=== PATIENT | male | born 1935 | race Caucasian/White ===

== ENCOUNTER 2020-03-17 08:27 | Inpatient (IN) | payer MEDICARE, OTHER ==
[~2020-03-17] VITALS: Ht 167.6 cm; Wt 77.7 kg
[2020-03-17] MEDS ORDERED: CLOPIDOGREL75 MG ORAL (08:42)
[2020-03-17] MEDS ORDERED: AVODART0.5 MG ORAL (08:42)
[2020-03-17] MEDS ORDERED: CRESTOR10 M2 ORAL (08:42)
[2020-03-17] MEDS ORDERED: METFORMIN HCL1000 M1 ORAL (08:42)
[2020-03-17] MEDS ORDERED: DEPAKOTE250 MG PO (08:42)
[2020-03-17] MEDS ORDERED: LEVOTHYROXINE75 MCG ORAL (08:42)
[2020-03-17] MEDS ORDERED: STARLIX60 MG ORAL (08:42)
[2020-03-17] MEDS ORDERED: FLOMAX0.4 MG ORAL (08:42)
[2020-03-17] MEDS ORDERED: SPIRONOLACTONE100 MG ORAL (08:42)
[2020-03-17] MEDS ORDERED: ABILIFY2 MG ORAL (08:42)
[2020-03-17] MEDS ORDERED: LEXAPRO20 MG ORAL (08:42)
[2020-03-17] MEDS ORDERED: MIRTAZAPINE15 M3 ORAL (08:42)
[2020-03-17] MEDS ORDERED: LISINOPRIL5 MG ORAL (08:42)
[2020-03-17] MEDS ORDERED: CARVEDILOL3.125 MG ORAL (08:42)
--- NOTE | 2020-03-17 08:51 | Emergency Room Report ---
History of Present Illness General Chief Complaint: Lower Extremity Injury Source: Patient, EMS Present Illness HPI Patient was sent from nursing facility with reports of right leg pain Patient himself has significant dementia cannot provide any history patient cannot provide input of why he was sent to the emergency room This does limit the history of present illness There was no reports of vomiting or diarrhea no reports of fevers there was question of a 'tick' being visualized on the patient's leg There was no reports of any obvious fall or trauma Patient is fairly comfortable upon arrival Palpation of the ankle and the knee does not reproduce any discomfort after this initial report I did speak to the patient's primary physician who reports the patient has had documented fever and cough raising question of covid19 Infection Allergies: Coded Allergies: ATORVASTATIN (Verified Allergy, Mild, 04/17/09) COVID-19 Screening Contact w/high risk pt: No Recent Travel to affected area: No Experienced COVID-19 symptoms?: No Patient History Limited by: medical condition Past Medical History: see triage record Reviewed Nursing Documentation: PMH: Agreed; PSxH: Agreed Nursing Documentation-PMH Hx Hypertension: Yes Hx Diabetes: Yes Review of Systems All Other Systems: limited - Other than the ones mentioned in the history of present illness all others are reviewed however they do stay limited due to the patient's mental status Physical Exam Vital Signs Date Time Temp Pulse Resp B/P (MAP) Pulse Ox O2 Delivery O2 Flow Rate FiO2 03/17/20 08:28 97.2 79 14 123/74 (90) 97 Room Air Sp02 EP Interpretation: reviewed, normal General Appearance: no apparent distress Head: normocephalic, atraumatic Eyes: bilateral eye PERRL, bilateral eye EOMI ENT: EOM grossly intact Neck: supple Respiratory: lungs clear, no respiratory distress, no retraction Cardiovascular #1: regular rate, rhythm Gastrointestinal: non tender, soft Musculoskeletal: other - Patient has some mild edema both lower extremities dependent in nature patient does not follow commands however passive movement of the extremities does not reproduce any discomfort Neurologic: responsive - To verbal stimuli following simple commands Skin: other - There is appearance of some edema in both lower extremities more on the right side patient has a venous stasis evident on the right lower extremity Lymphatic: no adenopathy Medical Decision Making Diagnostic Impression: Primary Impression: Weakness Additional Impression: Suspected COVID-19 virus infection ER Course given the history and exam initially x-ray imaging and ultrasound was obtained of the lower extremity with the new information patient also had covid 19 testing initiated Patient is negative for DVT At this time admitted for further inpatient care Labs Test 03/17/20 08:55 03/18/20 07:00 White Blood Count 4.9 K/UL (4.8-10.8) 5.6 K/UL (4.8-10.8) Red Blood Count 3.94 M/UL (4.70-6.10) 4.15 M/UL (4.70-6.10) Hemoglobin 10.8 G/DL (14.2-18.0) 11.6 G/DL (14.2-18.0) Hematocrit 32.1 % (42.0-52.0) 34.0 % (42.0-52.0) Mean Corpuscular Volume 82 FL (80-99) 82 FL (80-99) Mean Corpuscular Hemoglobin 27.5 PG (27.0-31.0) 27.9 PG (27.0-31.0) Mean Corpuscular Hemoglobin Concent 33.7 G/DL (32.0-36.0) 34.1 G/DL (32.0-36.0) Red Cell Distribution Width 12.9 % (11.6-14.8) 12.7 % (11.6-14.8) Platelet Count 270 K/UL (150-450) 317 K/UL (150-450) Mean Platelet Volume 5.6 FL (6.5-10.1) 5.7 FL (6.5-10.1) Neutrophils (%) (Auto) 75.7 % (45.0-75.0) 76.2 % (45.0-75.0) Lymphocytes (%) (Auto) 12.9 % (20.0-45.0) 12.8 % (20.0-45.0) Monocytes (%) (Auto) 10.0 % (1.0-10.0) 8.9 % (1.0-10.0) Eosinophils (%) (Auto) 0.8 % (0.0-3.0) 1.4 % (0.0-3.0) Basophils (%) (Auto) 0.6 % (0.0-2.0) 0.7 % (0.0-2.0) Sodium Level 138 MMOL/L (136-145) 141 MMOL/L (136-145) Potassium Level 4.3 MMOL/L (3.5-5.1) 3.8 MMOL/L (3.5-5.1) Chloride Level 105 MMOL/L (98-107) 106 MMOL/L (98-107) Carbon Dioxide Level 22 MMOL/L (21-32) 23 MMOL/L (21-32) Anion Gap 11 mmol/L (5-15) 12 mmol/L (5-15) Blood Urea Nitrogen 41 mg/dL (7-18) 23 mg/dL (7-18) Creatinine 1.0 MG/DL (0.55-1.30) 1.1 MG/DL (0.55-1.30) Estimat Glomerular Filtration Rate > 60 mL/min (>60) > 60 mL/min (>60) Glucose Level 100 MG/DL (74-106) 67 MG/DL (74-106) Calcium Level 8.3 MG/DL (8.5-10.1) 8.4 MG/DL (8.5-10.1) Troponin I 0.000 ng/mL (0.000-0.056) Pro-B-Type Natriuretic Peptide 396 pg/mL (0-125) Total Bilirubin 0.4 MG/DL (0.2-1.0) Aspartate Amino Transf (AST/SGOT) 39 U/L (15-37) Alanine Aminotransferase (ALT/SGPT) 59 U/L (12-78) Alkaline Phosphatase 44 U/L (46-116) Total Protein 7.3 G/DL (6.4-8.2) Albumin 2.8 G/DL (3.4-5.0) Globulin 4.5 g/dL Albumin/Globulin Ratio 0.6 (1.0-2.7) Rhythm Strip Diag. Results EP Interpretation: yes Rate: 77 Rhythm: NSR, no PVC's, no ectopy Chest X-Ray Diagnostic Results Chest X-Ray Diagnostic Results : Chest X-Ray Ordered: Yes # of Views/Limited/Complete: 1 View Indication: Shortness of Breath EP Interpretation: Yes Interpretation: no effusion, no pneumothorax, other - left midlobe atelectasis Impression: Other - left midlobe atelectasis Electronically Signed by: karina Rhodes DO Other X-Ray Diagnostic Results Other X-Ray Diagnostic Results : X-Ray ordered: right tib/fib # of Views/Limited Vs Complete: 3 View Indication: Pain EP Interpretation: Yes Interpretation: no dislocation, no soft tissue swelling, no fractures Impression: No acute disease Electronically Signed by: karina rhodes DO CT/MRI/US Diagnostic Results CT/MRI/US Diagnostic Results : Impression right lower extremity venous ultrasound negative for DVT Last Vital Signs Date Time Temp Pulse Resp B/P (MAP) Pulse Ox O2 Delivery O2 Flow Rate FiO2 03/17/20 08:28 97.2 79 14 123/74 (90) 97 Room Air Status: improved Disposition: ADMITTED INPATIENT Condition: Serious Karina Rhodes DO March 17, 2020 08:51
[2020-03-17 09:06] LABS: BASOPHILS % (AUTO) 0.6 % (0.0-2.0); EOSINOPHILS % (AUTO) 0.8 % (0.0-3.0); HEMATOCRIT 32.1 % (42.0-52.0); HEMOGLOBIN 10.8 G/DL (14.2-18.0); LYMPHOCYTES % (AUTO) 12.9 % (20.0-45.0); MEAN CORPUSCULAR VOLUME 82 FL (80-99); NEUTROPHILS % (AUTO) 75.7 % (45.0-75.0); PLATELET COUNT 270 K/UL (150-450); RED BLOOD COUNT 3.94 M/UL (4.70-6.10); RED CELL DISTRIBUTION WIDTH 12.9 % (11.6-14.8); WHITE BLOOD COUNT 4.9 K/UL (4.8-10.8)
[2020-03-17 09:37] LABS: ANION GAP 11 mmol/L (5-15); BLOOD UREA NITROGEN 41 mg/dL (7-18); CALCIUM 8.3 MG/DL (8.5-10.1); CARBON DIOXIDE 22 MMOL/L (21-32); CHLORIDE 105 MMOL/L (98-107); POTASSIUM 4.3 MMOL/L (3.5-5.1); SODIUM 138 MMOL/L (136-145)
--- NOTE | 2020-03-17 10:24 | Diagnostic Imaging Report ---
Indication: Chest pain Technique: One view of the chest Comparison: 01/31/2012 Findings: The heart is enlarged. There may be some hazy infiltrate in the left midlung periphery and consolidation of the left lung base. The right lung is clear. The pleural spaces are clear. Impression: Cardiomegaly Equivocal left midlung periphery and basilar infiltrate
[2020-03-17 11:00] VITALS: BP 120/80
--- NOTE | 2020-03-17 11:28 | Diagnostic Imaging Report ---
Indication: Reason For Exam: PAIN Technique: 2 views of the right tibia and fibula Comparison: none Findings: No acute fractures. No dislocations. The joint spaces are preserved. No radiopaque foreign body. Vascular calcifications are noted Impression: No acute process
--- NOTE | 2020-03-17 11:30 | Diagnostic Imaging Report ---
Indication: Right leg pain and redness Technique: Grayscale and duplex images of the right lower extremity veins Comparison: None Findings: On the right, grayscale and duplex images demonstrate no evidence of intraluminal thrombus. Normal phasic Doppler waveforms, demonstrating normal augmentation response and no evidence of valvular insufficiency. Greater saphenous vein(s) and tibial veins are patent. Normal compressibility. Impression: Negative for evidence of lower extremity deep venous thrombosis on the right
[2020-03-17 13:12] VITALS: BP 125/85
[2020-03-17] MEDS ORDERED: Azithromycin 500 MG in NS 275 ML IV ONE (13:30)
[2020-03-17] MEDS ORDERED: LORazepam Inj 2mg/ml 1ml ONE (16:02)
[2020-03-17] MEDS ORDERED: LORazepam Inj 2mg/ml 1ml IV ONE (16:15)
[2020-03-17 16:19] VITALS: BP 132/75
[2020-03-17 18:15] VITALS: BP 119/80
[2020-03-17 20:00] VITALS: BP 122/70
[2020-03-17] MEDS ORDERED: Acetaminophen 500mg (ES) tab ORAL PRN (20:00)
[2020-03-17] MEDS: Tamsulosin 0.4mg cap ORAL SCH (20:52)
--- NOTE | 2020-03-17 21:00 | Consultation ---
DATE OF CONSULTATION: 03/17/2020 PULMONARY CONSULTATION HISTORY OF PRESENT ILLNESS: This is an 84-year-old [facility] resident who was sent into the hospital with lower extremity discomfort. The patient has dementia and cannot provide any history. Most of the history obtained from the records. There was no history of fevers, nausea, vomiting, diarrhea. The patient appears to be comfortable on my evaluation. PAST MEDICAL HISTORY: Notable for dementia, [facility] resident. REVIEW OF SYSTEMS: Not obtainable. PAST SURGICAL HISTORY: Not known. PHYSICAL EXAMINATION: GENERAL: Reveals a elderly male. VITAL SIGNS: Blood pressure 120/60, heart rate is 84, respirations 18, afebrile. HEENT: Unremarkable. CHEST: Clear breath sounds. ABDOMEN: Soft. EXTREMITIES: There is no edema. LABORATORY DATA: Lab testing at this time is unremarkable except for hemoglobin 10.8, otherwise normal CBC and BMP. IMAGING STUDIES: X-ray of chest was obtained, which shows left lung infiltrate. IMPRESSION: 1. Possible pneumonia. 2. Lower extremity pain. 3. Dementia. DISCUSSION: Admitted to the hospital. We will need broad-spectrum antibiotics to cover for pneumonia. COVID-19 testing has been obtained. Agree with . We will follow carefully. Amador Cornejo M.D. DR: Nabeel JOB#: [id number] CC:
--- NOTE | 2020-03-17 22:00 | Consultation ---
DATE OF CONSULTATION: 03/17/2020 INFECTIOUS DISEASES CONSULTATION CONSULTING PHYSICIAN: Fredy Wheeler MD. PRIMARY ATTENDING PHYSICIAN: Karina Tripp MD. REASON FOR CONSULTATION: Fever, rule out COVID-19. HISTORY OF PRESENT ILLNESS: This is an 84-year-old white male who is a prison resident admitted because of fever. The patient has dementia and psych problem, is not a source of history. PAST MEDICAL HISTORY: Significant for diabetes mellitus, hypertension, hypothyroidism, dementia, BPH. ALLERGIES: Allergic to atorvastatin. MEDICATIONS: Got a dose of azithromycin. SOCIAL HISTORY: assisted resident. Single. No other history obtainable by the patient. The patient is confused, pulled out IV, naked, wandering in the room. PHYSICAL EXAMINATION: VITAL SIGNS: Temperature 97.8, pulse 83, blood pressure is 125/85. GENERAL APPEARANCE: Seems well developed, no acute distress. HEAD AND NECK: Sharon conjunctiva. HEART: Normal rate. LUNGS: Clear. ABDOMEN: Soft, obese. EXTREMITIES: Mild edema of legs. NEUROLOGIC: Awake, alert, verbal, confused. LABORATORY AND DIAGNOSTIC DATA: WBC 4.9, hemoglobin 10.8, hematocrit 32.1, and platelets is 278. Sodium 138, potassium 4.3, chloride 105, bicarbonate 22, BUN 41, creatinine 1, glucose 100. BNP 396. Venous duplex of lower extremity did not show DVT. Chest x-ray showed cardiomegaly, questionable left mid lung infiltrate and basilar infiltrate. Tibia & Fibula x-ray of the right leg showed no acute process. IMPRESSION: 1. Questionable pneumonia in right lung. We will try to rule out COVID-19. 2. Dementia. 3. Diabetes mellitus type 2 on oral hypoglycemics. 4. Hypertension. 5. Hypothyroidism. 6. BPH. RECOMMENDATION: We will followup chest x-ray. We will follow up clinical course. We will continue azithromycin. At the end of my exam, I thank Dr. Tripp, for involving me in the care of this patient. We will follow up COVID-19 tests. Fredy Wheeler M.D. DR: Austyn JOB#: [id number] CC: [place]
[2020-03-18] VITALS: BP 128/74
[2020-03-18 04:00] VITALS: BP 97/58
[2020-03-18] MEDS: Nateglinide 60mg tab ORAL SCH ×3 (05:48→17:08)
[2020-03-18] MEDS: metFORMIN 500mg tab ORAL SCH (05:48)
[2020-03-18] MEDS ORDERED: metFORMIN 500mg tab ORAL SCH (06:30)
[2020-03-18 07:29] LABS: BASOPHILS % (AUTO) 0.7 % (0.0-2.0); EOSINOPHILS % (AUTO) 1.4 % (0.0-3.0); HEMOGLOBIN 11.6 G/DL (14.2-18.0); LYMPHOCYTES % (AUTO) 12.8 % (20.0-45.0); MEAN CORPUSCULAR VOLUME 82 FL (80-99); MONOCYTES % (AUTO) 8.9 % (1.0-10.0); NEUTROPHILS % (AUTO) 76.2 % (45.0-75.0); PLATELET COUNT 317 K/UL (150-450); RED BLOOD COUNT 4.15 M/UL (4.70-6.10); RED CELL DISTRIBUTION WIDTH 12.7 % (11.6-14.8); WHITE BLOOD COUNT 5.6 K/UL (4.8-10.8)
[2020-03-18 07:37] LABS: ALANINE AMINOTRANSFERASE 59 U/L (12-78); ALBUMIN 2.8 G/DL (3.4-5.0); ALBUMIN/GLOBULIN RATIO 0.6 (1.0-2.7); ALKALINE PHOSPHATASE 44 U/L (46-116); ANION GAP 12 mmol/L (5-15); ASPARTATE AMINO TRANSFERASE 39 U/L (15-37); BILIRUBIN,TOTAL 0.4 MG/DL (0.2-1.0); BLOOD UREA NITROGEN 23 mg/dL (7-18); CALCIUM 8.4 MG/DL (8.5-10.1); CARBON DIOXIDE 23 MMOL/L (21-32); CHLORIDE 106 MMOL/L (98-107); CREATININE 1.1 MG/DL (0.55-1.30); POTASSIUM 3.8 MMOL/L (3.5-5.1); SODIUM 141 MMOL/L (136-145)
[2020-03-18 08:00] VITALS: BP 110/58
[2020-03-18] MEDS: Lisinopril 2.5mg tab ORAL SCH (09:00)
[2020-03-18] MEDS ORDERED: Lisinopril 20mg tab ORAL SCH (09:00)
[2020-03-18] MEDS: Spironolactone 25mg tab ORAL SCH (09:32)
--- NOTE | 2020-03-18 10:55 | Pulmonology Progress Note ---
Subjective Interval Events: None new Constitutional: Reports: no symptoms HEENT: Repors: no symptoms Respiratory: Reports: no symptoms Cardiovascular: Reports: no symptoms Allergies: Coded Allergies: ATORVASTATIN (Verified Allergy, Mild, 04/17/09) Objective Last 24 Hour Vital Signs Date Time Temp Pulse Resp B/P (MAP) Pulse Ox O2 Delivery O2 Flow Rate FiO2 03/18/20 09:00 Room Air 03/18/20 09:00 110/58 03/18/20 09:00 69 110/58 03/18/20 09:00 69 110/58 03/18/20 09:00 69 110/58 03/18/20 08:00 97.5 69 18 110/58 (75) 92 03/18/20 04:00 97.8 64 19 97/58 (71) 97 03/18/20 00:00 97.9 82 20 128/74 (92) 97 03/17/20 21:00 Room Air 03/17/20 20:52 75 122/70 03/17/20 20:51 75 122/70 03/17/20 20:00 96.8 75 20 122/70 (87) 96 03/17/20 18:15 97.3 79 19 119/80 (93) 96 03/17/20 18:15 Room Air 03/17/20 17:44 98.0 81 17 122/84 99 Room Air 03/17/20 16:19 98.0 75 20 132/75 100 Room Air 03/17/20 13:12 97.8 83 18 125/85 98 Room Air 03/17/20 11:00 97.6 86 16 120/80 97 Room Air Intake and Output 03/17/20 03/18/20 19:00 07:00 Intake Total 395 ml Balance 395 ml Intake Oral 120 ml IV Total 275 ml # Voids 1 2 # Bowel Movements 1 General Appearance: no acute distress HEENT: normocephalic Respiratory/Chest: chest wall non-tender, lungs clear Cardiovascular: normal peripheral pulses Abdomen: normal bowel sounds Laboratory Tests 03/18/20 07:00: White Blood Count 5.6, Red Blood Count 4.15L, Hemoglobin 11.6L, Hematocrit 34.0L , Mean Corpuscular Volume 82, Mean Corpuscular Hemoglobin 27.9, Mean Corpuscular Hemoglobin Concent 34.1, Red Cell Distribution Width 12.7, Platelet Count 317, Mean Platelet Volume 5.7L, Neutrophils (%) (Auto) 76.2H, Lymphocytes (%) (Auto) 12.8L, Monocytes (%) (Auto) 8.9, Eosinophils (%) (Auto) 1.4, Basophils (%) (Auto) 0.7, Sodium Level 141, Potassium Level 3.8, Chloride Level 106, Carbon Dioxide Level 23, Anion Gap 12, Blood Urea Nitrogen 23H, Creatinine 1.1, Estimat Glomerular Filtration Rate > 60, Glucose Level 67L, Calcium Level 8.4L, Total Bilirubin 0.4, Aspartate Amino Transf (AST/SGOT) 39H, Alanine Aminotransferase (ALT/SGPT) 59, Alkaline Phosphatase 44L, Total Protein 7.3, Albumin 2.8L, Globulin 4.5, Albumin/Globulin Ratio 0.6L Current Medications Medications (Trade) Dose Ordered Sig/Jaxon Route PRN Reason Start Time Stop Time Status Last Admin Dose Admin Acetaminophen (Tylenol) 500 mg Q4H PRN ORAL MILD PAIN/FEVER 03/17/20 20:00 04/16/20 19:59 Amlodipine Besylate (Norvasc) 10 mg DAILY ORAL 03/18/20 09:00 04/17/20 08:59 Aripiprazole (Abilify) 5 mg DAILY ORAL 03/18/20 09:00 05/02/20 08:59 03/18/20 09:32 Carvedilol (Coreg) 3.125 mg EVERY 12 HOURS ORAL 03/17/20 21:00 04/16/20 20:59 03/17/20 20:51 Clopidogrel Bisulfate (Plavix) 75 mg DAILY ORAL 03/18/20 09:00 04/17/20 08:59 03/18/20 09:31 Divalproex Sodium (Depakote) 250 mg BEDTIME ORAL 03/17/20 21:00 04/16/20 20:59 03/17/20 20:52 Escitalopram Oxalate (Lexapro) 20 mg DAILY ORAL 03/18/20 09:00 04/17/20 08:59 03/18/20 09:32 Finasteride (Proscar) 5 mg DAILY ORAL 03/18/20 09:00 06/16/20 08:59 03/18/20 09:32 Fluoxetine HCl (PROzac) 20 mg DAILY ORAL 03/18/20 09:00 04/17/20 08:59 03/18/20 09:31 Levothyroxine Sodium (Synthroid) 75 mcg ACBREAKFAST ORAL 03/18/20 06:30 04/17/20 06:29 03/18/20 05:48 Lisinopril (ZestriL) 5 mg DAILY ORAL 03/18/20 09:00 04/17/20 08:59 Metformin HCl (Glucophage) 1,000 mg ACBREAKFAST ORAL 03/18/20 06:30 04/17/20 06:29 03/18/20 05:48 Metoprolol Tartrate (Lopressor) 25 mg Q12HR ORAL 03/17/20 21:00 06/15/20 20:59 03/17/20 20:52 Mirtazapine (Remeron) 7.5 mg Q12HR ORAL 03/17/20 21:00 06/15/20 20:59 03/18/20 09:31 Nateglinide (Starlix) 60 mg TIAC ORAL 03/18/20 06:30 04/17/20 06:29 03/18/20 05:48 Pravastatin Sodium (Pravachol) 40 mg BEDTIME ORAL 03/17/20 21:00 04/16/20 20:59 03/17/20 20:52 Quetiapine Fumarate (SEROqueL) 25 mg TID ORAL 03/18/20 09:00 05/02/20 08:59 03/18/20 09:31 Spironolactone (Aldactone) 25 mg DAILY ORAL 03/18/20 09:00 04/17/20 08:59 03/18/20 09:32 Tamsulosin HCl (Flomax) 0.4 mg BEDTIME ORAL 03/17/20 21:00 04/16/20 20:59 03/17/20 20:52 Assessment/Plan Assessment/Plan IMPRESSION: 1. Possible pneumonia. 2. Lower extremity pain. 3. Dementia. DISCUSSION: Continue need broad-spectrum, antibiotics to cover for pneumonia. COVID-19 testing has been obtained. Agree with isolation . I will follow carefully. Amador Tirmizi, M.D. Tirmizi,Amador Dave MD March 18, 2020 10:55
[2020-03-18 12:00] VITALS: BP 112/58
[2020-03-18 16:00] VITALS: BP 115/71
[2020-03-18 20:00] VITALS: BP 120/67
[2020-03-18] MEDS: Tamsulosin 0.4mg cap ORAL SCH (20:48)
[2020-03-18] MEDS ORDERED: Haloperidol 5mg/ml Inj IM PRN (23:15)
[2020-03-19] VITALS: BP 122/66
--- NOTE | 2020-03-19 01:44 | History and Physical Report ---
DATE OF ADMISSION: 03/17/2020 HISTORY OF PRESENT ILLNESS: The patient comes in because he had a fever at the facility and has mild cough. The patient has dementia as well as poor historian. The patient is coming from a facility that has COVID-positive cases. The patient also complains of leg pain. He is a poor historian. Denies vomiting or nausea. Denies abdominal pain. Denies chills. Denies shortness of breath. PAST MEDICAL HISTORY: Organic brain syndrome, history of hypertension, history of diabetes, history of poor vision, history of mood disorder, depression, hypothyroidism, BPH, and hyperlipidemia. PAST SURGICAL HISTORY: Eye surgery. ALLERGIES: Atorvastatin. FAMILY HISTORY: Noncontributory. SOCIAL HISTORY: Denies history of smoking, denies history of alcohol abuse. No history of drug abuse. Lives in an assisted living. MEDICATIONS: Abilify, Coreg, Plavix, Avodart, Lexapro, lisinopril, Levoxyl, mirtazapine, metformin, Starlix, spironolactone, and Flomax. REVIEW OF SYSTEMS: HEENT: Denies headaches. RESPIRATORY: He does have occasional cough. CARDIOVASCULAR: Denies chest pain. GASTROINTESTINAL: Denies nausea, vomiting, or diarrhea. 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 CENTRAL NERVOUS SYSTEM: Denies changes in speech pattern. Feels weak. PHYSICAL EXAMINATION: VITAL SIGNS: Temperature is 97.8, pulse is 64, and blood pressure is 128/74. HEENT: PERRLA. NECK: Supple. No lymphadenopathy. CHEST: Clear to auscultation. CARDIOVASCULAR: Regular rate and rhythm. No murmurs or extra sounds. GASTROINTESTINAL: Soft. Nontender. EXTREMITIES: 1+ edema. No erythema. Does have venous stasis changes, which is chronic. NEUROLOGIC: Oriented x1, which is chronic. Has generalized weakness. Reflexes on both sides. LABORATORY DATA: WBC of 4.9, hemoglobin 10.8, and platelets 270. Sodium 138, potassium of 4.3, BUN of 41, and creatinine 1. ASSESSMENT AND PLAN: Cough, fever at the facility. Comes from the facility with COVID cases. I asked the ER doctor to send a COVID, and he said that he did send COVID swab already, it is pending. I have consulted Dr. Fredy Wheeler and Dr. Amador Cornejo. For shortness of breath, rule out pneumonia as well as rule out sepsis and rule out COVID-19. The patient had fever at the facility. Antibiotics per Dr. Fredy Wheeler. Karina Tripp M.D. DR: MAN JOB#: [id number] CC:
--- NOTE | 2020-03-19 03:29 | Consultation ---
DATE OF CONSULTATION: 03/18/2020 HISTORY OF PRESENT ILLNESS: The patient is an 84-year-old male with a history of multiple medical issues including dementia, depression, and psychotic disorder. He was admitted to the hospital due to lower extremity . The patient was ruled out for COVID. The patient is severely agitated, , difficult to redirect, confused, disoriented. Poor memory. Not able to get engaged and difficult to manage. PAST PSYCHIATRIC HISTORY: Dementia, depression, on Depakote as well as Prozac, mirtazapine, Seroquel, Abilify, and Lexapro. PAST MEDICAL HISTORY: Significant for dementia and hypertension. ALLERGIES: Atorvastatin. SUBSTANCE ABUSE: No known history of illicit drug use or alcohol. MENTAL STATUS EXAMINATION: The patient is alert, oriented times, self and place. Mood is agitated. Affect is flat. Thought process is concrete. Thought content, no suicidal or homicidal ideation. Cognition is impaired. Insight and judgment are impaired. ASSESSMENT: [place] I Dementia with behavior disturbance. Dementia with disorder. Psychotic disorder. [place] II Deferred. [place] III As above. [place] IV Low. [place] V 20. PLAN: 1. Decrease the Lexapro to 10 mg. 2. Discontinue the Abilify. 3. Discontinue the Remeron. 4. Discontinue the Prozac. 5. Increase the Depakote to 250 b.i.d. 6. Continue the Seroquel 3 times a day. 7. Haldol p.r.n. 8. Provide with reality orientation. Manuela Dominguez M.D. DR: SHEELA JOB#: [id number] CC:
[2020-03-19 04:00] VITALS: BP 109/60
[2020-03-19] MEDS: Nateglinide 60mg tab ORAL SCH ×3 (05:41→16:27)
[2020-03-19] MEDS: metFORMIN 500mg tab ORAL SCH (05:42)
[2020-03-19 08:00] VITALS: BP 118/74
[2020-03-19] MEDS: Spironolactone 25mg tab ORAL SCH (08:26)
[2020-03-19] MEDS: Lisinopril 2.5mg tab ORAL SCH (08:28)
--- NOTE | 2020-03-19 09:17 | Pulmonology Progress Note ---
Subjective Interval Events: None new Constitutional: Reports: no symptoms HEENT: Repors: no symptoms Respiratory: Reports: no symptoms Cardiovascular: Reports: no symptoms Allergies: Coded Allergies: ATORVASTATIN (Verified Allergy, Mild, 04/17/09) Objective Last 24 Hour Vital Signs Date Time Temp Pulse Resp B/P (MAP) Pulse Ox O2 Delivery O2 Flow Rate FiO2 03/19/20 08:28 118/74 03/19/20 08:27 90 118/74 03/19/20 08:27 90 118/74 03/19/20 08:27 90 118/74 03/19/20 04:00 97.9 74 18 109/60 (76) 96 03/19/20 01:42 98.8 03/19/20 00:00 98.8 82 19 122/66 (84) 96 03/18/20 21:00 Room Air 03/18/20 20:48 87 120/67 03/18/20 20:47 87 120/67 03/18/20 20:00 98.4 87 19 120/67 (84) 97 03/18/20 16:00 98.4 87 18 115/71 (86) 95 03/18/20 12:00 98.1 72 18 112/58 (76) 96 Intake and Output 03/18/20 03/19/20 19:00 07:00 Intake Total 594 ml 250 ml Output Total 702 ml 200 ml Balance -108 ml 50 ml Intake Oral 594 ml 250 ml Output Urine Total 701 ml 200 ml Stool Total 1 ml # Bowel Movements 2 General Appearance: no acute distress HEENT: normocephalic Respiratory/Chest: chest wall non-tender, lungs clear Cardiovascular: normal peripheral pulses Abdomen: normal bowel sounds Microbiology Date/Time Source Procedure Growth Status 03/17/20 10:38 Nasopharynx Coronavirus COVID-19 PCR ([facility]RIAN) - Final Complete Current Medications Medications (Trade) Dose Ordered Sig/Jaxon Route PRN Reason Start Time Stop Time Status Last Admin Dose Admin Acetaminophen (Tylenol) 500 mg Q4H PRN ORAL MILD PAIN/FEVER 03/17/20 20:00 04/16/20 19:59 03/19/20 01:12 Amlodipine Besylate (Norvasc) 10 mg DAILY ORAL 03/18/20 09:00 04/17/20 08:59 03/19/20 08:27 Carvedilol (Coreg) 3.125 mg EVERY 12 HOURS ORAL 03/17/20 21:00 04/16/20 20:59 03/19/20 08:27 Clopidogrel Bisulfate (Plavix) 75 mg DAILY ORAL 03/18/20 09:00 04/17/20 08:59 03/19/20 08:28 Divalproex Sodium (Depakote) 250 mg BID ORAL 03/19/20 09:00 04/18/20 08:59 03/19/20 08:27 Escitalopram Oxalate (Lexapro) 10 mg DAILY ORAL 03/19/20 09:00 04/18/20 08:59 03/19/20 08:27 Finasteride (Proscar) 5 mg DAILY ORAL 03/18/20 09:00 06/16/20 08:59 03/19/20 08:28 Haloperidol Lactate (Haldol) 5 mg Q6H PRN IM Agitation 03/18/20 23:15 05/02/20 23:14 Levothyroxine Sodium (Synthroid) 75 mcg ACBREAKFAST ORAL 03/18/20 06:30 04/17/20 06:29 03/19/20 05:41 Lisinopril (ZestriL) 5 mg DAILY ORAL 03/18/20 09:00 04/17/20 08:59 03/19/20 08:28 Metformin HCl (Glucophage) 1,000 mg ACBREAKFAST ORAL 03/18/20 06:30 04/17/20 06:29 03/19/20 05:42 Metoprolol Tartrate (Lopressor) 25 mg Q12HR ORAL 03/17/20 21:00 06/15/20 20:59 03/19/20 08:27 Nateglinide (Starlix) 60 mg TIAC ORAL 03/18/20 06:30 04/17/20 06:29 03/19/20 05:41 Pravastatin Sodium (Pravachol) 40 mg BEDTIME ORAL 03/17/20 21:00 04/16/20 20:59 03/18/20 20:47 Quetiapine Fumarate (SEROqueL) 25 mg TID ORAL 03/18/20 09:00 05/02/20 08:59 03/19/20 08:28 Spironolactone (Aldactone) 25 mg DAILY ORAL 03/18/20 09:00 04/17/20 08:59 03/19/20 08:26 Tamsulosin HCl (Flomax) 0.4 mg BEDTIME ORAL 03/17/20 21:00 04/16/20 20:59 03/18/20 20:48 Assessment/Plan Assessment/Plan IMPRESSION: 1. COVID 19 pneumonia. 2. Lower extremity pain. 3. Dementia. DISCUSSION: Continue broad-spectrum, antibiotics to cover for pneumonia. COVID-19 positive Agree with isolation . I will follow carefully. Xi Chowdhury Omar Syed MD March 19, 2020 09:17
[2020-03-19] MEDS: LORazepam Inj 2mg/ml 1ml IM PRN ×2 (09:53→20:47)
[2020-03-19 12:00] VITALS: BP 107/75
--- NOTE | 2020-03-19 14:57 | Infectious Diseases Prog Note ---
Assessment/Plan Assessment/Plan IMPRESSION: 1. COVID19 disease 2. Dementia. 3. Diabetes mellitus type 2 on oral hypoglycemics. 4. Hypertension. 5. Hypothyroidism. 6. BPH. RECOMMENDATION: We will followup chest x-ray. We will continue azithromycin. Subjective ROS Limited/Unobtainable: Yes Constitutional: Denies: fever Allergies: Coded Allergies: ATORVASTATIN (Verified Allergy, Mild, 04/17/09) Objective Vital Signs Last 24 Hour Vital Signs Date Time Temp Pulse Resp B/P (MAP) Pulse Ox O2 Delivery O2 Flow Rate FiO2 03/19/20 12:00 98.2 92 17 107/75 (86) 97 03/19/20 09:00 Room Air 03/19/20 08:28 118/74 03/19/20 08:27 90 118/74 03/19/20 08:27 90 118/74 03/19/20 08:27 90 118/74 03/19/20 08:00 98.7 90 18 118/74 (89) 98 03/19/20 04:00 97.9 74 18 109/60 (76) 96 03/19/20 01:42 98.8 03/19/20 00:00 98.8 82 19 122/66 (84) 96 03/18/20 21:00 Room Air 03/18/20 20:48 87 120/67 03/18/20 20:47 87 120/67 03/18/20 20:00 98.4 87 19 120/67 (84) 97 03/18/20 16:00 98.4 87 18 115/71 (86) 95 Height (Feet): 5 Height (Inches): 6.00 Weight (Pounds): 170 General Appearance: no acute distress HEENT: mucous membranes moist Respiratory/Chest: lungs clear Cardiovascular: normal rate Extremities: no edema Neurologic/Psychiatric: other - sleeping Microbiology Date/Time Source Procedure Growth Status 03/17/20 10:38 Nasopharynx Coronavirus COVID-19 PCR ([facility]) - Final Complete Current Medications Medications (Trade) Dose Ordered Sig/Jaxon Route PRN Reason Start Time Stop Time Status Last Admin Dose Admin Acetaminophen (Tylenol) 500 mg Q4H PRN ORAL MILD PAIN/FEVER 03/17/20 20:00 04/16/20 19:59 03/19/20 01:12 Amlodipine Besylate (Norvasc) 10 mg DAILY ORAL 03/18/20 09:00 04/17/20 08:59 03/19/20 08:27 Azithromycin (Zithromax) 500 mg DAILY ORAL 03/19/20 15:00 03/26/20 14:59 Carvedilol (Coreg) 3.125 mg EVERY 12 HOURS ORAL 03/17/20 21:00 04/16/20 20:59 03/19/20 08:27 Clopidogrel Bisulfate (Plavix) 75 mg DAILY ORAL 03/18/20 09:00 04/17/20 08:59 03/19/20 08:28 Divalproex Sodium (Depakote) 250 mg BID ORAL 03/19/20 09:00 04/18/20 08:59 03/19/20 08:27 Escitalopram Oxalate (Lexapro) 10 mg DAILY ORAL 03/19/20 09:00 04/18/20 08:59 03/19/20 08:27 Finasteride (Proscar) 5 mg DAILY ORAL 03/18/20 09:00 06/16/20 08:59 03/19/20 08:28 Haloperidol Lactate (Haldol) 5 mg Q6H PRN IM Agitation 03/18/20 23:15 05/02/20 23:14 Levothyroxine Sodium (Synthroid) 75 mcg ACBREAKFAST ORAL 03/18/20 06:30 04/17/20 06:29 03/19/20 05:41 Lisinopril (ZestriL) 5 mg DAILY ORAL 03/18/20 09:00 04/17/20 08:59 03/19/20 08:28 Lorazepam (Ativan 2mg/ml 1ml) 1 mg Q6HR PRN IM For Anxiety 03/19/20 09:45 03/26/20 09:44 03/19/20 09:53 Metformin HCl (Glucophage) 1,000 mg ACBREAKFAST ORAL 03/18/20 06:30 04/17/20 06:29 03/19/20 05:42 Metoprolol Tartrate (Lopressor) 25 mg Q12HR ORAL 03/17/20 21:00 06/15/20 20:59 03/19/20 08:27 Nateglinide (Starlix) 60 mg TIAC ORAL 03/18/20 06:30 04/17/20 06:29 03/19/20 12:01 Pravastatin Sodium (Pravachol) 40 mg BEDTIME ORAL 03/17/20 21:00 04/16/20 20:59 03/18/20 20:47 Quetiapine Fumarate (SEROqueL) 25 mg TID ORAL 03/18/20 09:00 05/02/20 08:59 03/19/20 12:01 Spironolactone (Aldactone) 25 mg DAILY ORAL 03/18/20 09:00 04/17/20 08:59 03/19/20 08:26 Tamsulosin HCl (Flomax) 0.4 mg BEDTIME ORAL 03/17/20 21:00 04/16/20 20:59 03/18/20 20:48 Fredy Wheeler MD March 19, 2020 14:57
[2020-03-19 16:00] VITALS: BP 114/77
[2020-03-19] MEDS: Azithromycin 250mg tab ORAL SCH (16:27)
[2020-03-19 20:00] VITALS: BP 134/84
--- NOTE | 2020-03-19 20:29 | General Progress Note ---
Assessment/Plan Problem List: (1) Weakness ICD Codes: R53.1 - Weakness SNOMED: [id number] Status: progressing Assessment/Plan: leg pain sepsis fever r/o covid obs Subjective ROS Limited/Unobtainable: Yes Allergies: Coded Allergies: ATORVASTATIN (Verified Allergy, Mild, 04/17/09) Objective Last 24 Hour Vital Signs Date Time Temp Pulse Resp B/P (MAP) Pulse Ox O2 Delivery O2 Flow Rate FiO2 03/19/20 20:00 98.6 97 18 134/84 (101) 96 03/19/20 16:00 98.3 95 18 114/77 (89) 96 03/19/20 12:00 98.2 92 17 107/75 (86) 97 03/19/20 09:00 Room Air 03/19/20 08:28 118/74 03/19/20 08:27 90 118/74 03/19/20 08:27 90 118/74 03/19/20 08:27 90 118/74 03/19/20 08:00 98.7 90 18 118/74 (89) 98 03/19/20 04:00 97.9 74 18 109/60 (76) 96 03/19/20 01:42 98.8 03/19/20 00:00 98.8 82 19 122/66 (84) 96 03/18/20 21:00 Room Air 03/18/20 20:48 87 120/67 03/18/20 20:47 87 120/67 Intake and Output 03/18/20 03/19/20 19:00 07:00 Intake Total 594 ml 250 ml Output Total 702 ml 200 ml Balance -108 ml 50 ml Intake Oral 594 ml 250 ml Output Urine Total 701 ml 200 ml Stool Total 1 ml # Bowel Movements 2 Height (Feet): 5 Height (Inches): 6.00 Weight (Pounds): 170 Karina Tripp MD March 19, 2020 20:29
[2020-03-19] MEDS: Tamsulosin 0.4mg cap ORAL SCH (20:45)
--- NOTE | 2020-03-19 23:32 | Psych Consult Progress Note ---
Psychiatry Progress Note Psychiatry Progress Note Medications Current Medications Medications (Trade) Dose Ordered Sig/Jaxon Route PRN Reason Start Time Stop Time Status Last Admin Dose Admin Acetaminophen (Tylenol) 500 mg Q4H PRN ORAL MILD PAIN/FEVER 03/17/20 20:00 04/16/20 19:59 03/19/20 01:12 Amlodipine Besylate (Norvasc) 10 mg DAILY ORAL 03/18/20 09:00 04/17/20 08:59 03/19/20 08:27 Azithromycin (Zithromax) 500 mg DAILY ORAL 03/19/20 15:00 03/26/20 14:59 03/19/20 16:27 Carvedilol (Coreg) 3.125 mg EVERY 12 HOURS ORAL 03/17/20 21:00 04/16/20 20:59 03/19/20 20:46 Clopidogrel Bisulfate (Plavix) 75 mg DAILY ORAL 03/18/20 09:00 04/17/20 08:59 03/19/20 08:28 Divalproex Sodium (Depakote) 250 mg BID ORAL 03/19/20 09:00 04/18/20 08:59 03/19/20 17:15 Escitalopram Oxalate (Lexapro) 10 mg DAILY ORAL 03/19/20 09:00 04/18/20 08:59 03/19/20 08:27 Finasteride (Proscar) 5 mg DAILY ORAL 03/18/20 09:00 06/16/20 08:59 03/19/20 08:28 Haloperidol Lactate (Haldol) 5 mg Q6H PRN IM Agitation 03/18/20 23:15 05/02/20 23:14 Levothyroxine Sodium (Synthroid) 75 mcg ACBREAKFAST ORAL 03/18/20 06:30 04/17/20 06:29 03/19/20 05:41 Lisinopril (ZestriL) 5 mg DAILY ORAL 03/18/20 09:00 04/17/20 08:59 03/19/20 08:28 Lorazepam (Ativan 2mg/ml 1ml) 1 mg Q6HR PRN IM For Anxiety 03/19/20 09:45 03/26/20 09:44 03/19/20 20:47 Metformin HCl (Glucophage) 1,000 mg ACBREAKFAST ORAL 5/9/20 06:30 04/17/20 06:29 03/19/20 05:42 Metoprolol Tartrate (Lopressor) 25 mg Q12HR ORAL 03/17/20 21:00 06/15/20 20:59 03/19/20 20:46 Nateglinide (Starlix) 60 mg TIAC ORAL 03/18/20 06:30 04/17/20 06:29 03/19/20 16:27 Pravastatin Sodium (Pravachol) 40 mg BEDTIME ORAL 03/17/20 21:00 04/16/20 20:59 03/19/20 20:45 Quetiapine Fumarate (SEROqueL) 25 mg TID ORAL 03/18/20 09:00 05/02/20 08:59 03/19/20 17:15 Spironolactone (Aldactone) 25 mg DAILY ORAL 03/18/20 09:00 04/17/20 08:59 03/19/20 08:26 Tamsulosin HCl (Flomax) 0.4 mg BEDTIME ORAL 03/17/20 21:00 04/16/20 20:59 03/19/20 20:45 Neurological/Psychiatric: Reports: anxiety, depressed, emotional problems Allergies: Coded Allergies: ATORVASTATIN (Verified Allergy, Mild, 04/17/09) Objective Data Height (Feet): 5 Height (Inches): 6.00 Weight (Pounds): 170 General Appearance: alert, confused, agitated Additional Comments: alert, oriented times, self and place. Mood is agitated. Affect is flat. Thought process is concrete. Thought content, no suicidal or homicidal ideation. Cognition is impaired. Insight and judgment are impaired. ASSESSMENT: [place] I Dementia with behavior disturbance. Psychotic disorder. PLAN: 1. Lexapro to 10 mg. 2. Depakote to 250 b.i.d. 6. Seroquel 3 times a day. 7. Haldol p.r.n. 8. Provide with reality orientation. Assessment/Plan Status: progressing Manuela Dominguez MD March 19, 2020 23:32
[2020-03-20] VITALS: BP 130/88
[2020-03-20 04:00] VITALS: BP 115/62
[2020-03-20] MEDS: Nateglinide 60mg tab ORAL SCH ×3 (05:38→17:18)
[2020-03-20] MEDS: metFORMIN 500mg tab ORAL SCH (05:38)
[2020-03-20 08:00] VITALS: BP 120/68
[2020-03-20] MEDS: Azithromycin 250mg tab ORAL SCH (08:15)
[2020-03-20] MEDS: Lisinopril 2.5mg tab ORAL SCH (08:16)
[2020-03-20] MEDS: Spironolactone 25mg tab ORAL SCH (08:16)
[2020-03-20] MEDS: LORazepam Inj 2mg/ml 1ml IM PRN (08:17)
--- NOTE | 2020-03-20 10:53 | Infectious Diseases Prog Note ---
Assessment/Plan Assessment/Plan IMPRESSION: 1. COVID19 disease 2. Dementia. 3. Diabetes mellitus type 2 on oral hypoglycemics. 4. Hypertension. 5. Hypothyroidism. 6. BPH. RECOMMENDATION: We will followup chest x-ray. We will continue azithromycin. repeat COVID19 test Subjective ROS Limited/Unobtainable: Yes Allergies: Coded Allergies: ATORVASTATIN (Verified Allergy, Mild, 04/17/09) Objective Vital Signs Last 24 Hour Vital Signs Date Time Temp Pulse Resp B/P (MAP) Pulse Ox O2 Delivery O2 Flow Rate FiO2 03/20/20 09:00 Room Air 03/20/20 08:17 98 120/68 03/20/20 08:16 120/68 03/20/20 08:16 98 120/68 03/20/20 08:15 98 120/68 03/20/20 08:00 98.7 98 18 120/68 (85) 96 03/20/20 04:00 98.9 96 18 115/62 (79) 95 03/20/20 00:00 98.5 93 18 130/88 (102) 96 03/19/20 21:00 Room Air 03/19/20 20:46 97 134/84 03/19/20 20:46 97 134/84 03/19/20 20:00 98.6 97 18 134/84 (101) 96 03/19/20 16:00 98.3 95 18 114/77 (89) 96 03/19/20 12:00 98.2 92 17 107/75 (86) 97 Height (Feet): 5 Height (Inches): 6.00 Weight (Pounds): 170 General Appearance: no acute distress HEENT: mucous membranes moist Respiratory/Chest: other - Oxygen by nasal cannula Cardiovascular: normal rate Abdomen: soft, non tender Extremities: no edema Neurologic/Psychiatric: other - sleeping Current Medications Medications (Trade) Dose Ordered Sig/Jaxon Route PRN Reason Start Time Stop Time Status Last Admin Dose Admin Acetaminophen (Tylenol) 500 mg Q4H PRN ORAL MILD PAIN/FEVER 03/17/20 20:00 04/16/20 19:59 03/19/20 01:12 Amlodipine Besylate (Norvasc) 10 mg DAILY ORAL 03/18/20 09:00 04/17/20 08:59 03/20/20 08:17 Azithromycin (Zithromax) 500 mg DAILY ORAL 03/19/20 15:00 03/26/20 14:59 03/20/20 08:15 Carvedilol (Coreg) 3.125 mg EVERY 12 HOURS ORAL 03/17/20 21:00 04/16/20 20:59 03/20/20 08:15 Clopidogrel Bisulfate (Plavix) 75 mg DAILY ORAL 03/18/20 09:00 04/17/20 08:59 03/20/20 08:16 Divalproex Sodium (Depakote) 250 mg BID ORAL 03/19/20 09:00 04/18/20 08:59 03/20/20 08:15 Escitalopram Oxalate (Lexapro) 10 mg DAILY ORAL 03/19/20 09:00 04/18/20 08:59 03/20/20 08:16 Finasteride (Proscar) 5 mg DAILY ORAL 03/18/20 09:00 06/16/20 08:59 03/20/20 08:17 Haloperidol Lactate (Haldol) 5 mg Q6H PRN IM Agitation 03/18/20 23:15 05/02/20 23:14 Levothyroxine Sodium (Synthroid) 75 mcg ACBREAKFAST ORAL 03/18/20 06:30 04/17/20 06:29 03/20/20 05:38 Lisinopril (ZestriL) 5 mg DAILY ORAL 03/18/20 09:00 04/17/20 08:59 03/20/20 08:16 Lorazepam (Ativan 2mg/ml 1ml) 1 mg Q6HR PRN IM For Anxiety 03/19/20 09:45 03/26/20 09:44 03/20/20 08:17 Metformin HCl (Glucophage) 1,000 mg ACBREAKFAST ORAL 03/18/20 06:30 04/17/20 06:29 03/20/20 05:38 Metoprolol Tartrate (Lopressor) 25 mg Q12HR ORAL 03/17/20 21:00 06/15/20 20:59 03/20/20 08:16 Nateglinide (Starlix) 60 mg TIAC ORAL 03/18/20 06:30 04/17/20 06:29 03/20/20 05:38 Pravastatin Sodium (Pravachol) 40 mg BEDTIME ORAL 03/17/20 21:00 04/16/20 20:59 03/19/20 20:45 Quetiapine Fumarate (SEROqueL) 25 mg TID ORAL 03/18/20 09:00 05/02/20 08:59 03/20/20 08:16 Spironolactone (Aldactone) 25 mg DAILY ORAL 03/18/20 09:00 04/17/20 08:59 03/20/20 08:16 Tamsulosin HCl (Flomax) 0.4 mg BEDTIME ORAL 03/17/20 21:00 04/16/20 20:59 03/19/20 20:45 Fredy Wheeler MD March 20, 2020 10:53
--- NOTE | 2020-03-20 11:27 | Diagnostic Imaging Report ---
Indication: Shortness of breath Technique: One view of the chest Comparison: 03/17/2020 Findings: Right basilar atelectasis, questionable left basilar peripheral infiltrates are unchanged. The pleural spaces are clear. The heart size is normal Impression: Unchanged, over one day, findings as above. .
[2020-03-20 12:00] VITALS: BP 124/76
--- NOTE | 2020-03-20 15:52 | Pulmonology Progress Note ---
Subjective ROS Limited/Unobtainable: Yes Interval Events: None new Constitutional: Denies: fever HEENT: Repors: no symptoms Respiratory: Reports: no symptoms Cardiovascular: Reports: no symptoms Allergies: Coded Allergies: ATORVASTATIN (Verified Allergy, Mild, 04/17/09) Objective Last 24 Hour Vital Signs Date Time Temp Pulse Resp B/P (MAP) Pulse Ox O2 Delivery O2 Flow Rate FiO2 03/20/20 12:00 98.6 100 18 124/76 (92) 97 03/20/20 09:00 Room Air 03/20/20 08:17 98 120/68 03/20/20 08:16 120/68 03/20/20 08:16 98 120/68 03/20/20 08:15 98 120/68 03/20/20 08:00 98.7 98 18 120/68 (85) 96 03/20/20 04:00 98.9 96 18 115/62 (79) 95 03/20/20 00:00 98.5 93 18 130/88 (102) 96 03/19/20 21:00 Room Air 03/19/20 20:46 97 134/84 03/19/20 20:46 97 134/84 03/19/20 20:00 98.6 97 18 134/84 (101) 96 03/19/20 16:00 98.3 95 18 114/77 (89) 96 Intake and Output 03/19/20 03/20/20 19:00 07:00 Intake Total 200 ml Output Total 350 ml Balance -150 ml Intake Oral 200 ml Output Urine Total 350 ml # Voids 4 General Appearance: no acute distress HEENT: mucous membranes moist Respiratory/Chest: chest wall non-tender, lungs clear Cardiovascular: normal peripheral pulses Abdomen: soft, non tender Extremities: no edema Neurologic/Psychiatric: other - sleeping Current Medications Medications (Trade) Dose Ordered Sig/Jaxon Route PRN Reason Start Time Stop Time Status Last Admin Dose Admin Acetaminophen (Tylenol) 500 mg Q4H PRN ORAL MILD PAIN/FEVER 03/17/20 20:00 04/16/20 19:59 03/19/20 01:12 Amlodipine Besylate (Norvasc) 10 mg DAILY ORAL 03/18/20 09:00 04/17/20 08:59 03/20/20 08:17 Azithromycin (Zithromax) 500 mg DAILY ORAL 03/19/20 15:00 03/26/20 14:59 03/20/20 08:15 Carvedilol (Coreg) 3.125 mg EVERY 12 HOURS ORAL 03/17/20 21:00 04/16/20 20:59 03/20/20 08:15 Clopidogrel Bisulfate (Plavix) 75 mg DAILY ORAL 03/18/20 09:00 04/17/20 08:59 03/20/20 08:16 Divalproex Sodium (Depakote) 250 mg BID ORAL 03/19/20 09:00 04/18/20 08:59 03/20/20 08:15 Escitalopram Oxalate (Lexapro) 10 mg DAILY ORAL 03/19/20 09:00 04/18/20 08:59 03/20/20 08:16 Finasteride (Proscar) 5 mg DAILY ORAL 03/18/20 09:00 06/16/20 08:59 03/20/20 08:17 Haloperidol Lactate (Haldol) 5 mg Q6H PRN IM Agitation 03/18/20 23:15 05/02/20 23:14 Levothyroxine Sodium (Synthroid) 75 mcg ACBREAKFAST ORAL 03/18/20 06:30 04/17/20 06:29 03/20/20 05:38 Lisinopril (ZestriL) 5 mg DAILY ORAL 03/18/20 09:00 04/17/20 08:59 03/20/20 08:16 Lorazepam (Ativan 2mg/ml 1ml) 1 mg Q6HR PRN IM For Anxiety 03/19/20 09:45 03/26/20 09:44 03/20/20 08:17 Metformin HCl (Glucophage) 1,000 mg ACBREAKFAST ORAL 03/18/20 06:30 04/17/20 06:29 03/20/20 05:38 Metoprolol Tartrate (Lopressor) 25 mg Q12HR ORAL 03/17/20 21:00 06/15/20 20:59 03/20/20 08:16 Nateglinide (Starlix) 60 mg TIAC ORAL 03/18/20 06:30 04/17/20 06:29 03/20/20 12:01 Pravastatin Sodium (Pravachol) 40 mg BEDTIME ORAL 03/17/20 21:00 04/16/20 20:59 03/19/20 20:45 Quetiapine Fumarate (SEROqueL) 25 mg TID ORAL 03/18/20 09:00 05/02/20 08:59 03/20/20 12:00 Spironolactone (Aldactone) 25 mg DAILY ORAL 03/18/20 09:00 04/17/20 08:59 03/20/20 08:16 Tamsulosin HCl (Flomax) 0.4 mg BEDTIME ORAL 03/17/20 21:00 04/16/20 20:59 03/19/20 20:45 Assessment/Plan Assessment/Plan IMPRESSION: 1. COVID 19 pneumonia. 2. Lower extremity pain. 3. Dementia. DISCUSSION: Continue broad-spectrum, antibiotics to cover for pneumonia. COVID-19 positive Agree with isolation . I will follow carefully. Saturating well on RA Xi Chowdhury Omar Syed MD March 20, 2020 15:52
[2020-03-20 16:00] VITALS: BP 136/80
[2020-03-20 20:00] VITALS: BP 105/51
[2020-03-20] MEDS: Tamsulosin 0.4mg cap ORAL SCH (20:15)
--- NOTE | 2020-03-20 21:36 | General Progress Note ---
Assessment/Plan Problem List: (1) Weakness ICD Codes: R53.1 - Weakness SNOMED: [id number] Status: progressing Assessment/Plan: leg pain sepsis fever is covid positive abx per id Subjective ROS Limited/Unobtainable: Yes Allergies: Coded Allergies: ATORVASTATIN (Verified Allergy, Mild, 04/17/09) Objective Last 24 Hour Vital Signs Date Time Temp Pulse Resp B/P (MAP) Pulse Ox O2 Delivery O2 Flow Rate FiO2 03/20/20 20:16 98 136/80 03/20/20 20:15 98 136/80 03/20/20 20:00 97.6 71 18 105/51 (69) 96 03/20/20 16:00 98.4 98 18 136/80 (98) 97 03/20/20 12:00 98.6 100 18 124/76 (92) 97 03/20/20 09:00 Room Air 03/20/20 08:17 98 120/68 03/20/20 08:16 120/68 03/20/20 08:16 98 120/68 03/20/20 08:15 98 120/68 03/20/20 08:00 98.7 98 18 120/68 (85) 96 03/20/20 04:00 98.9 96 18 115/62 (79) 95 03/20/20 00:00 98.5 93 18 130/88 (102) 96 Intake and Output 03/19/20 03/20/20 19:00 07:00 Intake Total 200 ml Output Total 350 ml Balance -150 ml Intake Oral 200 ml Output Urine Total 350 ml # Voids 4 Height (Feet): 5 Height (Inches): 6.00 Weight (Pounds): 170 Karina Tripp MD March 20, 2020 21:36
[2020-03-21] VITALS: BP 105/60
--- NOTE | 2020-03-21 00:01 | Psych Consult Progress Note ---
Psychiatry Progress Note Psychiatry Progress Note Medications Current Medications Medications (Trade) Dose Ordered Sig/Jaxon Route PRN Reason Start Time Stop Time Status Last Admin Dose Admin Acetaminophen (Tylenol) 500 mg Q4H PRN ORAL MILD PAIN/FEVER 03/17/20 20:00 04/16/20 19:59 03/19/20 01:12 Amlodipine Besylate (Norvasc) 10 mg DAILY ORAL 03/18/20 09:00 04/17/20 08:59 03/20/20 08:17 Azithromycin (Zithromax) 500 mg DAILY ORAL 03/19/20 15:00 03/26/20 14:59 03/20/20 08:15 Carvedilol (Coreg) 3.125 mg EVERY 12 HOURS ORAL 03/17/20 21:00 04/16/20 20:59 03/20/20 20:15 Clopidogrel Bisulfate (Plavix) 75 mg DAILY ORAL 03/18/20 09:00 04/17/20 08:59 03/20/20 08:16 Divalproex Sodium (Depakote) 250 mg BID ORAL 03/19/20 09:00 04/18/20 08:59 03/20/20 17:18 Escitalopram Oxalate (Lexapro) 10 mg DAILY ORAL 03/19/20 09:00 04/18/20 08:59 03/20/20 08:16 Finasteride (Proscar) 5 mg DAILY ORAL 03/18/20 09:00 06/16/20 08:59 03/20/20 08:17 Haloperidol Lactate (Haldol) 5 mg Q6H PRN IM Agitation 03/18/20 23:15 05/02/20 23:14 Levothyroxine Sodium (Synthroid) 75 mcg ACBREAKFAST ORAL 03/18/20 06:30 04/17/20 06:29 03/20/20 05:38 Lisinopril (ZestriL) 5 mg DAILY ORAL 03/18/20 09:00 04/17/20 08:59 03/20/20 08:16 Lorazepam (Ativan 2mg/ml 1ml) 1 mg Q6HR PRN IM For Anxiety 03/19/20 09:45 03/26/20 09:44 03/20/20 08:17 Metformin HCl (Glucophage) 1,000 mg ACBREAKFAST ORAL 03/18/20 06:30 04/17/20 06:29 03/20/20 05:38 Metoprolol Tartrate (Lopressor) 25 mg Q12HR ORAL 03/17/20 21:00 06/15/20 20:59 03/20/20 20:16 Nateglinide (Starlix) 60 mg TIAC ORAL 03/18/20 06:30 04/17/20 06:29 03/20/20 17:18 Pravastatin Sodium (Pravachol) 40 mg BEDTIME ORAL 03/17/20 21:00 04/16/20 20:59 03/20/20 20:16 Quetiapine Fumarate (SEROqueL) 25 mg TID ORAL 03/18/20 09:00 05/02/20 08:59 03/20/20 17:18 Spironolactone (Aldactone) 25 mg DAILY ORAL 03/18/20 09:00 04/17/20 08:59 03/20/20 08:16 Tamsulosin HCl (Flomax) 0.4 mg BEDTIME ORAL 03/17/20 21:00 04/16/20 20:59 03/20/20 20:15 Allergies: Coded Allergies: ATORVASTATIN (Verified Allergy, Mild, 04/17/09) Objective Data Height (Feet): 5 Height (Inches): 6.00 Weight (Pounds): 170 Assessment/Plan Status: Manuela Kaiser MD March 21, 2020 00:01
[2020-03-21 04:00] VITALS: BP 108/58
[2020-03-21] MEDS: Nateglinide 60mg tab ORAL SCH ×3 (05:46→16:43)
[2020-03-21] MEDS: metFORMIN 500mg tab ORAL SCH (05:46)
[2020-03-21 08:00] VITALS: BP 90/52
[2020-03-21] MEDS: Lisinopril 2.5mg tab ORAL SCH (09:00)
[2020-03-21] MEDS: Azithromycin 250mg tab ORAL SCH (09:30)
[2020-03-21] MEDS: Spironolactone 25mg tab ORAL SCH (09:31)
[2020-03-21 12:00] VITALS: BP 106/59
--- NOTE | 2020-03-21 12:14 | Pulmonology Progress Note ---
Subjective ROS Limited/Unobtainable: Yes Interval Events: None new Constitutional: Denies: fever HEENT: Repors: no symptoms Respiratory: Reports: no symptoms Cardiovascular: Reports: no symptoms Allergies: Coded Allergies: ATORVASTATIN (Verified Allergy, Mild, 04/17/09) Objective Last 24 Hour Vital Signs Date Time Temp Pulse Resp B/P (MAP) Pulse Ox O2 Delivery O2 Flow Rate FiO2 03/21/20 12:00 98.0 75 18 106/59 (75) 98 03/21/20 09:00 Room Air 03/21/20 09:00 90/52 03/21/20 09:00 76 90/52 03/21/20 09:00 76 90/52 03/21/20 09:00 76 90/52 03/21/20 08:00 98.5 76 18 90/52 (65) 98 03/21/20 04:00 97.4 70 18 108/58 (75) 97 03/21/20 00:00 97.4 70 18 105/60 (75) 96 03/20/20 21:36 Room Air 03/20/20 20:16 98 136/80 03/20/20 20:15 98 136/80 03/20/20 20:00 97.6 71 18 105/51 (69) 96 03/20/20 16:00 98.4 98 18 136/80 (98) 97 Intake and Output 03/20/20 03/21/20 19:00 07:00 Intake Total 200 ml Output Total 450 ml Balance 200 ml -450 ml Intake Oral 200 ml Output Urine Total 450 ml # Voids 2 1 General Appearance: no acute distress HEENT: mucous membranes moist Respiratory/Chest: chest wall non-tender, lungs clear Cardiovascular: normal peripheral pulses Abdomen: soft, non tender Extremities: no edema Neurologic/Psychiatric: other - sleeping Microbiology Date/Time Source Procedure Growth Status 03/19/20 12:07 Nasopharynx Coronavirus COVID-19 PCR ([facility]) - Final Complete Current Medications Medications (Trade) Dose Ordered Sig/Jaxon Route PRN Reason Start Time Stop Time Status Last Admin Dose Admin Acetaminophen (Tylenol) 500 mg Q4H PRN ORAL MILD PAIN/FEVER 03/17/20 20:00 04/16/20 19:59 03/19/20 01:12 Amlodipine Besylate (Norvasc) 10 mg DAILY ORAL 03/18/20 09:00 04/17/20 08:59 03/20/20 08:17 Azithromycin (Zithromax) 500 mg DAILY ORAL 03/19/20 15:00 03/26/20 14:59 03/21/20 09:30 Carvedilol (Coreg) 3.125 mg EVERY 12 HOURS ORAL 03/17/20 21:00 04/16/20 20:59 03/20/20 20:15 Clopidogrel Bisulfate (Plavix) 75 mg DAILY ORAL 03/18/20 09:00 04/17/20 08:59 03/21/20 09:31 Divalproex Sodium (Depakote) 250 mg BID ORAL 03/19/20 09:00 04/18/20 08:59 03/21/20 09:31 Escitalopram Oxalate (Lexapro) 10 mg DAILY ORAL 03/19/20 09:00 04/18/20 08:59 03/21/20 09:30 Finasteride (Proscar) 5 mg DAILY ORAL 03/18/20 09:00 06/16/20 08:59 03/21/20 09:30 Haloperidol Lactate (Haldol) 5 mg Q6H PRN IM Agitation 03/18/20 23:15 05/02/20 23:14 Levothyroxine Sodium (Synthroid) 75 mcg ACBREAKFAST ORAL 03/18/20 06:30 04/17/20 06:29 03/21/20 05:46 Lisinopril (ZestriL) 5 mg DAILY ORAL 03/18/20 09:00 04/17/20 08:59 03/20/20 08:16 Lorazepam (Ativan 2mg/ml 1ml) 1 mg Q6HR PRN IM For Anxiety 03/19/20 09:45 03/26/20 09:44 03/20/20 08:17 Metformin HCl (Glucophage) 1,000 mg ACBREAKFAST ORAL 03/18/20 06:30 04/17/20 06:29 03/21/20 05:46 Metoprolol Tartrate (Lopressor) 25 mg Q12HR ORAL 03/17/20 21:00 06/15/20 20:59 03/20/20 20:16 Nateglinide (Starlix) 60 mg TIAC ORAL 03/18/20 06:30 04/17/20 06:29 03/21/20 05:46 Pravastatin Sodium (Pravachol) 40 mg BEDTIME ORAL 03/17/20 21:00 04/16/20 20:59 03/20/20 20:16 Quetiapine Fumarate (SEROqueL) 25 mg TID ORAL 03/18/20 09:00 05/02/20 08:59 03/21/20 09:31 Spironolactone (Aldactone) 25 mg DAILY ORAL 03/18/20 09:00 04/17/20 08:59 03/21/20 09:31 Tamsulosin HCl (Flomax) 0.4 mg BEDTIME ORAL 03/17/20 21:00 04/16/20 20:59 03/20/20 20:15 Assessment/Plan Assessment/Plan IMPRESSION: 1. COVID 19 pneumonia. 2. Lower extremity pain. 3. Dementia. DISCUSSION: Continue broad-spectrum, antibiotics to cover for pneumonia. COVID-19 positive Agree with isolation . I will follow carefully. Saturating well on RA Xi Chowdhury Omar Syed MD March 21, 2020 12:14
--- NOTE | 2020-03-21 13:37 | Infectious Diseases Prog Note ---
Assessment/Plan Assessment/Plan IMPRESSION: 1. COVID19 disease Positive 03/17 negative: 5/1o 2. Dementia. 3. Diabetes mellitus type 2 on oral hypoglycemics. 4. Hypertension. 5. Hypothyroidism. 6. BPH. RECOMMENDATION: Unchanged chest x-ray. We will continue azithromycin. repeat COVID19 test Subjective ROS Limited/Unobtainable: Yes Constitutional: Denies: fever Neurologic: Reports: confusion Allergies: Coded Allergies: ATORVASTATIN (Verified Allergy, Mild, 04/17/09) Objective Vital Signs Last 24 Hour Vital Signs Date Time Temp Pulse Resp B/P (MAP) Pulse Ox O2 Delivery O2 Flow Rate FiO2 03/21/20 12:00 98.0 75 18 106/59 (75) 98 03/21/20 09:00 Room Air 03/21/20 09:00 90/52 03/21/20 09:00 76 90/52 03/21/20 09:00 76 90/52 03/21/20 09:00 76 90/52 03/21/20 08:00 98.5 76 18 90/52 (65) 98 03/21/20 04:00 97.4 70 18 108/58 (75) 97 03/21/20 00:00 97.4 70 18 105/60 (75) 96 03/20/20 21:36 Room Air 03/20/20 20:16 98 136/80 03/20/20 20:15 98 136/80 03/20/20 20:00 97.6 71 18 105/51 (69) 96 03/20/20 16:00 98.4 98 18 136/80 (98) 97 Height (Feet): 5 Height (Inches): 6.00 Weight (Pounds): 170 General Appearance: no acute distress HEENT: mucous membranes moist Respiratory/Chest: lungs clear Cardiovascular: normal rate Abdomen: soft, non tender Neurologic/Psychiatric: alert, responsive Microbiology Date/Time Source Procedure Growth Status 03/19/20 12:07 Nasopharynx Coronavirus COVID-19 PCR (BRIAN) - Final Complete Current Medications Medications (Trade) Dose Ordered Sig/Jaxon Route PRN Reason Start Time Stop Time Status Last Admin Dose Admin Acetaminophen (Tylenol) 500 mg Q4H PRN ORAL MILD PAIN/FEVER 03/17/20 20:00 04/16/20 19:59 03/19/20 01:12 Amlodipine Besylate (Norvasc) 10 mg DAILY ORAL 03/18/20 09:00 04/17/20 08:59 03/20/20 08:17 Azithromycin (Zithromax) 500 mg DAILY ORAL 03/19/20 15:00 03/26/20 14:59 03/21/20 09:30 Carvedilol (Coreg) 3.125 mg EVERY 12 HOURS ORAL 03/17/20 21:00 04/16/20 20:59 03/20/20 20:15 Clopidogrel Bisulfate (Plavix) 75 mg DAILY ORAL 03/18/20 09:00 04/17/20 08:59 03/21/20 09:31 Divalproex Sodium (Depakote) 250 mg BID ORAL 03/19/20 09:00 04/18/20 08:59 03/21/20 09:31 Escitalopram Oxalate (Lexapro) 10 mg DAILY ORAL 03/19/20 09:00 04/18/20 08:59 03/21/20 09:30 Finasteride (Proscar) 5 mg DAILY ORAL 03/18/20 09:00 06/16/20 08:59 03/21/20 09:30 Haloperidol Lactate (Haldol) 5 mg Q6H PRN IM Agitation 03/18/20 23:15 05/02/20 23:14 Levothyroxine Sodium (Synthroid) 75 mcg ACBREAKFAST ORAL 03/18/20 06:30 04/17/20 06:29 03/21/20 05:46 Lisinopril (ZestriL) 5 mg DAILY ORAL 03/18/20 09:00 04/17/20 08:59 03/20/20 08:16 Lorazepam (Ativan 2mg/ml 1ml) 1 mg Q6HR PRN IM For Anxiety 03/19/20 09:45 03/26/20 09:44 03/20/20 08:17 Metformin HCl (Glucophage) 1,000 mg ACBREAKFAST ORAL 03/18/20 06:30 04/17/20 06:29 03/21/20 05:46 Metoprolol Tartrate (Lopressor) 25 mg Q12HR ORAL 03/17/20 21:00 06/15/20 20:59 03/20/20 20:16 Nateglinide (Starlix) 60 mg TIAC ORAL 03/18/20 06:30 04/17/20 06:29 03/21/20 12:17 Pravastatin Sodium (Pravachol) 40 mg BEDTIME ORAL 03/17/20 21:00 04/16/20 20:59 03/20/20 20:16 Quetiapine Fumarate (SEROqueL) 25 mg TID ORAL 03/18/20 09:00 05/02/20 08:59 03/21/20 12:18 Spironolactone (Aldactone) 25 mg DAILY ORAL 03/18/20 09:00 04/17/20 08:59 03/21/20 09:31 Tamsulosin HCl (Flomax) 0.4 mg BEDTIME ORAL 03/17/20 21:00 04/16/20 20:59 03/20/20 20:15 Fredy Wheelre MD March 21, 2020 13:37
[2020-03-21 16:00] VITALS: BP 101/69
[2020-03-21 20:00] VITALS: BP 115/72
[2020-03-21] MEDS: Tamsulosin 0.4mg cap ORAL SCH (20:13)
--- NOTE | 2020-03-21 21:21 | General Progress Note ---
Assessment/Plan Problem List: (1) Weakness ICD Codes: R53.1 - Weakness SNOMED: [id number] Status: progressing Assessment/Plan: pna resp insuff weak sepsis is covid positive Subjective ROS Limited/Unobtainable: Yes Allergies: Coded Allergies: ATORVASTATIN (Verified Allergy, Mild, 04/17/09) Objective Last 24 Hour Vital Signs Date Time Temp Pulse Resp B/P (MAP) Pulse Ox O2 Delivery O2 Flow Rate FiO2 03/21/20 20:14 76 101/69 03/21/20 20:13 76 101/69 03/21/20 16:00 98.1 76 19 101/69 (80) 98 03/21/20 12:00 98.0 75 18 106/59 (75) 98 03/21/20 09:00 Room Air 03/21/20 09:00 90/52 03/21/20 09:00 76 90/52 03/21/20 09:00 76 90/52 03/21/20 09:00 76 90/52 03/21/20 08:00 98.5 76 18 90/52 (65) 98 03/21/20 04:00 97.4 70 18 108/58 (75) 97 03/21/20 00:00 97.4 70 18 105/60 (75) 96 03/20/20 21:36 Room Air Intake and Output 03/20/20 03/21/20 19:00 07:00 Intake Total 200 ml Output Total 450 ml Balance 200 ml -450 ml Intake Oral 200 ml Output Urine Total 450 ml # Voids 2 1 Height (Feet): 5 Height (Inches): 6.00 Weight (Pounds): 170 Karina Tripp MD March 21, 2020 21:21
--- NOTE | 2020-03-21 22:50 | Psych Consult Progress Note ---
Psychiatry Progress Note Psychiatry Progress Note Medications Current Medications Medications (Trade) Dose Ordered Sig/Jaxon Route PRN Reason Start Time Stop Time Status Last Admin Dose Admin Acetaminophen (Tylenol) 500 mg Q4H PRN ORAL MILD PAIN/FEVER 03/17/20 20:00 04/16/20 19:59 03/19/20 01:12 Amlodipine Besylate (Norvasc) 10 mg DAILY ORAL 03/18/20 09:00 04/17/20 08:59 03/20/20 08:17 Azithromycin (Zithromax) 500 mg DAILY ORAL 03/19/20 15:00 03/26/20 14:59 03/21/20 09:30 Carvedilol (Coreg) 3.125 mg EVERY 12 HOURS ORAL 03/17/20 21:00 04/16/20 20:59 03/20/20 20:15 Clopidogrel Bisulfate (Plavix) 75 mg DAILY ORAL 03/18/20 09:00 04/17/20 08:59 03/21/20 09:31 Divalproex Sodium (Depakote) 250 mg BID ORAL 03/19/20 09:00 04/18/20 08:59 03/21/20 17:25 Escitalopram Oxalate (Lexapro) 10 mg DAILY ORAL 03/19/20 09:00 04/18/20 08:59 03/21/20 09:30 Finasteride (Proscar) 5 mg DAILY ORAL 03/18/20 09:00 06/16/20 08:59 03/21/20 09:30 Haloperidol Lactate (Haldol) 5 mg Q6H PRN IM Agitation 03/18/20 23:15 05/02/20 23:14 03/21/20 20:56 Levothyroxine Sodium (Synthroid) 75 mcg ACBREAKFAST ORAL 03/18/20 06:30 04/17/20 06:29 03/21/20 05:46 Lisinopril (ZestriL) 5 mg DAILY ORAL 03/18/20 09:00 04/17/20 08:59 03/20/20 08:16 Lorazepam (Ativan 2mg/ml 1ml) 1 mg Q6HR PRN IM For Anxiety 03/19/20 09:45 03/26/20 09:44 03/20/20 08:17 Metformin HCl (Glucophage) 1,000 mg ACBREAKFAST ORAL 03/18/20 06:30 04/17/20 06:29 03/21/20 05:46 Metoprolol Tartrate (Lopressor) 25 mg Q12HR ORAL 03/17/20 21:00 06/15/20 20:59 03/21/20 20:13 Nateglinide (Starlix) 60 mg TIAC ORAL 03/18/20 06:30 04/17/20 06:29 03/21/20 16:43 Pravastatin Sodium (Pravachol) 40 mg BEDTIME ORAL 03/17/20 21:00 04/16/20 20:59 03/21/20 20:13 Quetiapine Fumarate (SEROqueL) 25 mg TID ORAL 03/18/20 09:00 05/02/20 08:59 03/21/20 17:25 Spironolactone (Aldactone) 25 mg DAILY ORAL 03/18/20 09:00 04/17/20 08:59 03/21/20 09:31 Tamsulosin HCl (Flomax) 0.4 mg BEDTIME ORAL 03/17/20 21:00 04/16/20 20:59 03/21/20 20:13 Neurological/Psychiatric: Reports: anxiety, depressed, emotional problems Allergies: Coded Allergies: ATORVASTATIN (Verified Allergy, Mild, 04/17/09) Objective Data Height (Feet): 5 Height (Inches): 6.00 Weight (Pounds): 170 Additional Comments: alert, oriented times, self and place. Mood is agitated. Affect is flat. Thought process is concrete. Thought content, no suicidal or homicidal ideation. Cognition is impaired. Insight and judgment are impaired. 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 Status: progressing Assessment/Plan: 1. Lexapro to 10 mg. 2. Increase the Depakote to 250 b.i.d. 3. Continue the Seroquel 3 times a day. 4. Haldol p.r.n. 5. Provide with reality orientation. Manuela Dominguez MD March 21, 2020 22:50
[2020-03-22] VITALS: BP 120/73
[2020-03-22] MEDS: LORazepam Inj 2mg/ml 1ml IM PRN ×3 (02:11→20:00)
[2020-03-22 04:00] VITALS: BP 112/71
[2020-03-22] MEDS: metFORMIN 500mg tab ORAL SCH (05:41)
[2020-03-22] MEDS: Nateglinide 60mg tab ORAL SCH ×3 (05:41→17:04)
[2020-03-22 08:00] VITALS: BP 119/82
[2020-03-22] MEDS: Azithromycin 250mg tab ORAL SCH (08:59)
[2020-03-22] MEDS: Lisinopril 2.5mg tab ORAL SCH (09:00)
[2020-03-22] MEDS: Spironolactone 25mg tab ORAL SCH (09:00)
--- NOTE | 2020-03-22 10:47 | Pulmonology Progress Note ---
Subjective ROS Limited/Unobtainable: Yes Interval Events: None new Constitutional: Denies: fever HEENT: Repors: no symptoms Respiratory: Reports: no symptoms Cardiovascular: Reports: no symptoms Allergies: Coded Allergies: ATORVASTATIN (Verified Allergy, Mild, 04/17/09) Objective Last 24 Hour Vital Signs Date Time Temp Pulse Resp B/P (MAP) Pulse Ox O2 Delivery O2 Flow Rate FiO2 03/22/20 09:00 119/82 03/22/20 09:00 94 119/82 03/22/20 09:00 Room Air 03/22/20 08:59 94 119/82 03/22/20 08:57 94 119/82 03/22/20 08:00 98.2 94 19 119/82 (94) 98 03/22/20 04:00 97.8 85 19 112/71 (85) 98 03/22/20 00:00 98.4 107 19 120/73 (89) 98 03/21/20 21:46 Room Air 03/21/20 20:14 76 101/69 03/21/20 20:13 76 101/69 03/21/20 20:00 98.6 101 19 115/72 (86) 97 03/21/20 16:00 98.1 76 19 101/69 (80) 98 03/21/20 12:00 98.0 75 18 106/59 (75) 98 Intake and Output 03/21/20 03/22/20 19:00 07:00 Intake Total 600 ml Balance 600 ml Other 600 ml # Voids 1 General Appearance: no acute distress HEENT: mucous membranes moist Respiratory/Chest: chest wall non-tender, lungs clear Cardiovascular: normal peripheral pulses Abdomen: soft, non tender Extremities: no edema Neurologic/Psychiatric: alert, responsive Microbiology Date/Time Source Procedure Growth Status 03/19/20 12:07 Nasopharynx Coronavirus COVID-19 PCR (BRIAN) - Final Complete Current Medications Medications (Trade) Dose Ordered Sig/Jaxon Route PRN Reason Start Time Stop Time Status Last Admin Dose Admin Acetaminophen (Tylenol) 500 mg Q4H PRN ORAL MILD PAIN/FEVER 03/17/20 20:00 04/16/20 19:59 03/19/20 01:12 Amlodipine Besylate (Norvasc) 10 mg DAILY ORAL 03/18/20 09:00 04/17/20 08:59 03/22/20 09:00 Azithromycin (Zithromax) 500 mg DAILY ORAL 03/19/20 15:00 03/26/20 14:59 03/22/20 08:59 Carvedilol (Coreg) 3.125 mg EVERY 12 HOURS ORAL 03/17/20 21:00 04/16/20 20:59 03/22/20 08:57 Clopidogrel Bisulfate (Plavix) 75 mg DAILY ORAL 03/18/20 09:00 04/17/20 08:59 03/22/20 08:59 Divalproex Sodium (Depakote) 250 mg BID ORAL 03/19/20 09:00 04/18/20 08:59 03/22/20 08:59 Escitalopram Oxalate (Lexapro) 10 mg DAILY ORAL 03/19/20 09:00 04/18/20 08:59 03/22/20 08:59 Finasteride (Proscar) 5 mg DAILY ORAL 03/18/20 09:00 06/16/20 08:59 03/22/20 09:00 Haloperidol Lactate (Haldol) 5 mg Q6H PRN IM Agitation 03/18/20 23:15 05/02/20 23:14 03/21/20 20:56 Levothyroxine Sodium (Synthroid) 75 mcg ACBREAKFAST ORAL 03/18/20 06:30 04/17/20 06:29 03/22/20 05:41 Lisinopril (ZestriL) 5 mg DAILY ORAL 03/18/20 09:00 04/17/20 08:59 03/22/20 09:00 Lorazepam (Ativan 2mg/ml 1ml) 1 mg Q6HR PRN IM For Anxiety 03/19/20 09:45 03/26/20 09:44 03/22/20 09:14 Metformin HCl (Glucophage) 1,000 mg ACBREAKFAST ORAL 03/18/20 06:30 04/17/20 06:29 03/22/20 05:41 Metoprolol Tartrate (Lopressor) 25 mg Q12HR ORAL 03/17/20 21:00 06/15/20 20:59 03/22/20 08:59 Nateglinide (Starlix) 60 mg TIAC ORAL 03/18/20 06:30 04/17/20 06:29 03/22/20 05:41 Pravastatin Sodium (Pravachol) 40 mg BEDTIME ORAL 03/17/20 21:00 04/16/20 20:59 03/21/20 20:13 Quetiapine Fumarate (SEROqueL) 25 mg TID ORAL 03/18/20 09:00 05/02/20 08:59 03/22/20 08:59 Spironolactone (Aldactone) 25 mg DAILY ORAL 03/18/20 09:00 04/17/20 08:59 03/22/20 09:00 Tamsulosin HCl (Flomax) 0.4 mg BEDTIME ORAL 03/17/20 21:00 04/16/20 20:59 03/21/20 20:13 Assessment/Plan Assessment/Plan IMPRESSION: 1. COVID 19 pneumonia. 2. Lower extremity pain. 3. Dementia. DISCUSSION: Continue broad-spectrum, antibiotics to cover for pneumonia. COVID-19 positive Agree with isolation . I will follow carefully. Saturating well on RA Amador Cornejo M.D. Amador Cornejo MD March 22, 2020 10:47
--- NOTE | 2020-03-22 11:19 | Infectious Diseases Prog Note ---
Assessment/Plan Assessment/Plan IMPRESSION: 1. COVID19 disease Positive 03/17 negative: 03/19 2. Dementia. 3. Diabetes mellitus type 2 on oral hypoglycemics. 4. Hypertension. 5. Hypothyroidism. 6. BPH. RECOMMENDATION: Unchanged chest x-ray. We will continue azithromycin. repeat COVID19 test Subjective ROS Limited/Unobtainable: Yes Constitutional: Denies: fever Allergies: Coded Allergies: ATORVASTATIN (Verified Allergy, Mild, 04/17/09) Objective Vital Signs Last 24 Hour Vital Signs Date Time Temp Pulse Resp B/P (MAP) Pulse Ox O2 Delivery O2 Flow Rate FiO2 03/22/20 09:00 119/82 03/22/20 09:00 94 119/82 03/22/20 09:00 Room Air 03/22/20 08:59 94 119/82 03/22/20 08:57 94 119/82 03/22/20 08:00 98.2 94 19 119/82 (94) 98 03/22/20 04:00 97.8 85 19 112/71 (85) 98 03/22/20 00:00 98.4 107 19 120/73 (89) 98 03/21/20 21:46 Room Air 03/21/20 20:14 76 101/69 03/21/20 20:13 76 101/69 03/21/20 20:00 98.6 101 19 115/72 (86) 97 03/21/20 16:00 98.1 76 19 101/69 (80) 98 03/21/20 12:00 98.0 75 18 106/59 (75) 98 Height (Feet): 5 Height (Inches): 6.00 Weight (Pounds): 171 General Appearance: no acute distress HEENT: mucous membranes moist Respiratory/Chest: other - oxygen by nasal cannula Cardiovascular: normal rate Abdomen: soft, non tender Extremities: no edema Neurologic/Psychiatric: other - sleeping Microbiology Date/Time Source Procedure Growth Status 03/19/20 12:07 Nasopharynx Coronavirus COVID-19 PCR (BRIAN) - Final Complete Current Medications Medications (Trade) Dose Ordered Sig/Jaxon Route PRN Reason Start Time Stop Time Status Last Admin Dose Admin Acetaminophen (Tylenol) 500 mg Q4H PRN ORAL MILD PAIN/FEVER 03/17/20 20:00 04/16/20 19:59 03/19/20 01:12 Amlodipine Besylate (Norvasc) 10 mg DAILY ORAL 03/18/20 09:00 04/17/20 08:59 03/22/20 09:00 Azithromycin (Zithromax) 500 mg DAILY ORAL 03/19/20 15:00 03/26/20 14:59 03/22/20 08:59 Carvedilol (Coreg) 3.125 mg EVERY 12 HOURS ORAL 03/17/20 21:00 04/16/20 20:59 03/22/20 08:57 Clopidogrel Bisulfate (Plavix) 75 mg DAILY ORAL 03/18/20 09:00 04/17/20 08:59 03/22/20 08:59 Divalproex Sodium (Depakote) 250 mg BID ORAL 03/19/20 09:00 04/18/20 08:59 03/22/20 08:59 Escitalopram Oxalate (Lexapro) 10 mg DAILY ORAL 03/19/20 09:00 04/18/20 08:59 03/22/20 08:59 Finasteride (Proscar) 5 mg DAILY ORAL 03/18/20 09:00 06/16/20 08:59 03/22/20 09:00 Haloperidol Lactate (Haldol) 5 mg Q6H PRN IM Agitation 03/18/20 23:15 05/02/20 23:14 03/21/20 20:56 Levothyroxine Sodium (Synthroid) 75 mcg ACBREAKFAST ORAL 03/18/20 06:30 04/17/20 06:29 03/22/20 05:41 Lisinopril (ZestriL) 5 mg DAILY ORAL 03/18/20 09:00 04/17/20 08:59 03/22/20 09:00 Lorazepam (Ativan 2mg/ml 1ml) 1 mg Q6HR PRN IM For Anxiety 03/19/20 09:45 03/26/20 09:44 03/22/20 09:14 Metformin HCl (Glucophage) 1,000 mg ACBREAKFAST ORAL 03/18/20 06:30 04/17/20 06:29 03/22/20 05:41 Metoprolol Tartrate (Lopressor) 25 mg Q12HR ORAL 03/17/20 21:00 06/15/20 20:59 03/22/20 08:59 Nateglinide (Starlix) 60 mg TIAC ORAL 03/18/20 06:30 04/17/20 06:29 03/22/20 05:41 Pravastatin Sodium (Pravachol) 40 mg BEDTIME ORAL 03/17/20 21:00 04/16/20 20:59 03/21/20 20:13 Quetiapine Fumarate (SEROqueL) 25 mg TID ORAL 03/18/20 09:00 05/02/20 08:59 03/22/20 08:59 Spironolactone (Aldactone) 25 mg DAILY ORAL 03/18/20 09:00 04/17/20 08:59 03/22/20 09:00 Tamsulosin HCl (Flomax) 0.4 mg BEDTIME ORAL 03/17/20 21:00 04/16/20 20:59 03/21/20 20:13 Fredy Wheeler MD March 22, 2020 11:18
[2020-03-22 12:00] VITALS: BP 110/72
[2020-03-22 16:00] VITALS: BP 102/63
[2020-03-22 20:00] VITALS: BP 97/54
[2020-03-22] MEDS: Tamsulosin 0.4mg cap ORAL SCH (20:01)
--- NOTE | 2020-03-22 21:23 | General Progress Note ---
Assessment/Plan Problem List: (1) Weakness ICD Codes: R53.1 - Weakness SNOMED: [id number] Status: progressing Assessment/Plan: pna improving no fever reviewed chart and labs sepsis is covid positive Subjective ROS Limited/Unobtainable: Yes Allergies: Coded Allergies: ATORVASTATIN (Verified Allergy, Mild, 04/17/09) Objective Last 24 Hour Vital Signs Date Time Temp Pulse Resp B/P (MAP) Pulse Ox O2 Delivery O2 Flow Rate FiO2 03/22/20 20:28 72 102/63 03/22/20 20:00 72 102/63 03/22/20 16:00 97.1 72 21 102/63 (76) 97 03/22/20 12:00 97.1 71 20 110/72 (85) 96 03/22/20 09:00 119/82 03/22/20 09:00 94 119/82 03/22/20 09:00 Room Air 03/22/20 08:59 94 119/82 03/22/20 08:57 94 119/82 03/22/20 08:00 98.2 94 19 119/82 (94) 98 03/22/20 04:00 97.8 85 19 112/71 (85) 98 03/22/20 00:00 98.4 107 19 120/73 (89) 98 03/21/20 21:46 Room Air Intake and Output 03/21/20 03/22/20 19:00 07:00 Intake Total 600 ml Balance 600 ml Other 600 ml # Voids 1 Height (Feet): 5 Height (Inches): 6.00 Weight (Pounds): 171 Karina Tripp MD March 22, 2020 21:23
[2020-03-23] VITALS: BP 105/56
[2020-03-23] MEDS: LORazepam Inj 2mg/ml 1ml IM PRN ×2 (03:49→10:08)
[2020-03-23 04:00] VITALS: BP 103/63
--- NOTE | 2020-03-23 05:45 | Progress Note ---
DATE: 03/22/2020 SUBJECTIVE: The patient is gradually improving easily agitated. Poor memory, poor appetite, less agitated than previous encounter. MENTAL STATUS EXAMINATION: Alert and disoriented. Mood is anxious. Affect is flat. Thought process, there is a paucity of thought content. Thought content, no suicidal or homicidal ideation. Cognition is impaired. Insight and judgment is impaired. ASSESSMENT: Dementia with behavior disturbance. PLAN: 1. Seroquel 25 mg t.i.d. 2. Haldol as needed. 3. Discussed with the nurse. Manuela Dominguez M.D. DR: Keerthi JOB#: [id number] CC:
[2020-03-23] MEDS: Nateglinide 60mg tab ORAL SCH ×2 (05:47→12:07)
[2020-03-23] MEDS: metFORMIN 500mg tab ORAL SCH (05:47)
[2020-03-23 08:00] VITALS: BP 111/68
[2020-03-23] MEDS: Azithromycin 250mg tab ORAL SCH (08:40)
[2020-03-23] MEDS: Lisinopril 2.5mg tab ORAL SCH (08:41)
[2020-03-23] MEDS: Spironolactone 25mg tab ORAL SCH (08:41)
--- NOTE | 2020-03-23 10:39 | Pulmonology Progress Note ---
Subjective ROS Limited/Unobtainable: Yes Interval Events: None new Constitutional: Denies: fever HEENT: Repors: no symptoms Respiratory: Reports: no symptoms Cardiovascular: Reports: no symptoms Allergies: Coded Allergies: ATORVASTATIN (Verified Allergy, Mild, 04/17/09) Objective Last 24 Hour Vital Signs Date Time Temp Pulse Resp B/P (MAP) Pulse Ox O2 Delivery O2 Flow Rate FiO2 03/23/20 09:00 Room Air 03/23/20 08:42 96 111/68 03/23/20 08:41 111/68 03/23/20 08:41 96 111/68 03/23/20 08:41 96 111/68 03/23/20 08:00 97.7 96 20 111/68 (82) 95 03/23/20 04:00 97.3 88 21 103/63 (76) 93 03/23/20 00:00 97.9 79 21 105/56 (72) 93 03/22/20 22:16 Room Air 03/22/20 20:28 72 102/63 03/22/20 20:00 72 102/63 03/22/20 20:00 97.9 97 21 97/54 (68) 97 03/22/20 16:00 97.1 72 21 102/63 (76) 97 03/22/20 12:00 97.1 71 20 110/72 (85) 96 Intake and Output 03/22/20 03/23/20 18:59 06:59 Intake Total 360 ml Balance 360 ml Intake Oral 360 ml # Voids 2 General Appearance: no acute distress HEENT: mucous membranes moist Respiratory/Chest: chest wall non-tender, lungs clear Cardiovascular: normal peripheral pulses Abdomen: soft, non tender Extremities: no edema Neurologic/Psychiatric: other Microbiology Date/Time Source Procedure Growth Status 03/21/20 15:15 Nasopharynx Coronavirus COVID-19 PCR (BRIAN) - Final Complete Current Medications Medications (Trade) Dose Ordered Sig/Jaxon Route PRN Reason Start Time Stop Time Status Last Admin Dose Admin Acetaminophen (Tylenol) 500 mg Q4H PRN ORAL MILD PAIN/FEVER 03/17/20 20:00 04/16/20 19:59 03/19/20 01:12 Amlodipine Besylate (Norvasc) 10 mg DAILY ORAL 03/18/20 09:00 04/17/20 08:59 03/22/20 09:00 Azithromycin (Zithromax) 500 mg DAILY ORAL 03/19/20 15:00 03/26/20 14:59 03/23/20 08:40 Carvedilol (Coreg) 3.125 mg EVERY 12 HOURS ORAL 03/17/20 21:00 04/16/20 20:59 03/22/20 08:57 Clopidogrel Bisulfate (Plavix) 75 mg DAILY ORAL 03/18/20 09:00 04/17/20 08:59 03/23/20 08:40 Divalproex Sodium (Depakote) 250 mg BID ORAL 03/19/20 09:00 04/18/20 08:59 03/23/20 08:40 Escitalopram Oxalate (Lexapro) 10 mg DAILY ORAL 03/19/20 09:00 04/18/20 08:59 03/23/20 08:40 Finasteride (Proscar) 5 mg DAILY ORAL 03/18/20 09:00 06/16/20 08:59 03/23/20 08:40 Haloperidol Lactate (Haldol) 5 mg Q6H PRN IM Agitation 03/18/20 23:15 05/02/20 23:14 03/21/20 20:56 Levothyroxine Sodium (Synthroid) 75 mcg ACBREAKFAST ORAL 03/18/20 06:30 04/17/20 06:29 03/23/20 05:47 Lisinopril (ZestriL) 5 mg DAILY ORAL 03/18/20 09:00 04/17/20 08:59 03/22/20 09:00 Lorazepam (Ativan 2mg/ml 1ml) 1 mg Q6HR PRN IM For Anxiety 03/19/20 09:45 03/26/20 09:44 03/23/20 10:08 Metformin HCl (Glucophage) 1,000 mg ACBREAKFAST ORAL 03/18/20 06:30 04/17/20 06:29 03/23/20 05:47 Metoprolol Tartrate (Lopressor) 25 mg Q12HR ORAL 03/17/20 21:00 06/15/20 20:59 03/22/20 20:00 Nateglinide (Starlix) 60 mg TIAC ORAL 03/18/20 06:30 04/17/20 06:29 03/23/20 05:47 Pravastatin Sodium (Pravachol) 40 mg BEDTIME ORAL 03/17/20 21:00 04/16/20 20:59 03/22/20 20:00 Quetiapine Fumarate (SEROqueL) 25 mg TID ORAL 03/18/20 09:00 05/02/20 08:59 03/23/20 08:40 Spironolactone (Aldactone) 25 mg DAILY ORAL 03/18/20 09:00 04/17/20 08:59 03/23/20 08:41 Tamsulosin HCl (Flomax) 0.4 mg BEDTIME ORAL 03/17/20 21:00 04/16/20 20:59 03/22/20 20:01 Assessment/Plan Assessment/Plan IMPRESSION: 1. COVID 19 pneumonia. 2. Lower extremity pain. 3. Dementia. DISCUSSION: Continue broad-spectrum, antibiotics to cover for pneumonia. COVID-19 positive Agree with isolation . I will follow carefully. Saturating well on RA Amador Cornejo M.D. Amador Cornejo MD March 23, 2020 10:39
[2020-03-23 12:00] VITALS: BP 113/70
--- NOTE | 2020-03-23 13:03 | Infectious Diseases Prog Note ---
Assessment/Plan Assessment/Plan IMPRESSION: 1. COVID19 disease Positive 03/17 negative: 03/19, 03/21 2. Dementia. 3. Diabetes mellitus type 2 on oral hypoglycemics. 4. Hypertension. 5. Hypothyroidism. 6. BPH. RECOMMENDATION: Agree with discharge without antibiotic Case was D/W RN & Dr Tripp Subjective ROS Limited/Unobtainable: Yes Neurologic: Reports: other - on restraint Allergies: Coded Allergies: ATORVASTATIN (Verified Allergy, Mild, 04/17/09) Objective Vital Signs Last 24 Hour Vital Signs Date Time Temp Pulse Resp B/P (MAP) Pulse Ox O2 Delivery O2 Flow Rate FiO2 03/23/20 12:00 97.5 77 19 113/70 (84) 96 03/23/20 09:00 Room Air 03/23/20 08:42 96 111/68 03/23/20 08:41 111/68 03/23/20 08:41 96 111/68 03/23/20 08:41 96 111/68 03/23/20 08:00 97.7 96 20 111/68 (82) 95 03/23/20 04:00 97.3 88 21 103/63 (76) 93 03/23/20 00:00 97.9 79 21 105/56 (72) 93 03/22/20 22:16 Room Air 03/22/20 20:28 72 102/63 03/22/20 20:00 72 102/63 03/22/20 20:00 97.9 97 21 97/54 (68) 97 03/22/20 16:00 97.1 72 21 102/63 (76) 97 Height (Feet): 5 Height (Inches): 6.00 Weight (Pounds): 171 General Appearance: no acute distress HEENT: mucous membranes moist Respiratory/Chest: other - few rhonchi, oxygen by nasal cannula Cardiovascular: normal rate Abdomen: soft, non tender Extremities: no edema Neurologic/Psychiatric: other - sleeping Microbiology Date/Time Source Procedure Growth Status 03/21/20 15:15 Nasopharynx Coronavirus COVID-19 PCR ([facility]) - Final Complete Current Medications Medications (Trade) Dose Ordered Sig/Jaxon Route PRN Reason Start Time Stop Time Status Last Admin Dose Admin Acetaminophen (Tylenol) 500 mg Q4H PRN ORAL MILD PAIN/FEVER 03/17/20 20:00 04/16/20 19:59 03/19/20 01:12 Amlodipine Besylate (Norvasc) 10 mg DAILY ORAL 03/18/20 09:00 04/17/20 08:59 03/22/20 09:00 Azithromycin (Zithromax) 500 mg DAILY ORAL 03/19/20 15:00 03/26/20 14:59 03/23/20 08:40 Carvedilol (Coreg) 3.125 mg EVERY 12 HOURS ORAL 03/17/20 21:00 04/16/20 20:59 03/22/20 08:57 Clopidogrel Bisulfate (Plavix) 75 mg DAILY ORAL 03/18/20 09:00 04/17/20 08:59 03/23/20 08:40 Divalproex Sodium (Depakote) 250 mg BID ORAL 03/19/20 09:00 04/18/20 08:59 03/23/20 08:40 Escitalopram Oxalate (Lexapro) 10 mg DAILY ORAL 03/19/20 09:00 04/18/20 08:59 03/23/20 08:40 Finasteride (Proscar) 5 mg DAILY ORAL 03/18/20 09:00 06/16/20 08:59 03/23/20 08:40 Haloperidol Lactate (Haldol) 5 mg Q6H PRN IM Agitation 03/18/20 23:15 05/02/20 23:14 03/21/20 20:56 Levothyroxine Sodium (Synthroid) 75 mcg ACBREAKFAST ORAL 03/18/20 06:30 04/17/20 06:29 03/23/20 05:47 Lisinopril (ZestriL) 5 mg DAILY ORAL 03/18/20 09:00 04/17/20 08:59 03/22/20 09:00 Lorazepam (Ativan 2mg/ml 1ml) 1 mg Q6HR PRN IM For Anxiety 03/19/20 09:45 03/26/20 09:44 03/23/20 10:08 Metformin HCl (Glucophage) 1,000 mg ACBREAKFAST ORAL 03/18/20 06:30 04/17/20 06:29 03/23/20 05:47 Metoprolol Tartrate (Lopressor) 25 mg Q12HR ORAL 03/17/20 21:00 06/15/20 20:59 03/22/20 20:00 Nateglinide (Starlix) 60 mg TIAC ORAL 03/18/20 06:30 04/17/20 06:29 03/23/20 12:07 Pravastatin Sodium (Pravachol) 40 mg BEDTIME ORAL 03/17/20 21:00 04/16/20 20:59 03/22/20 20:00 Quetiapine Fumarate (SEROqueL) 25 mg TID ORAL 03/18/20 09:00 05/02/20 08:59 03/23/20 12:07 Spironolactone (Aldactone) 25 mg DAILY ORAL 03/18/20 09:00 04/17/20 08:59 03/23/20 08:41 Tamsulosin HCl (Flomax) 0.4 mg BEDTIME ORAL 03/17/20 21:00 04/16/20 20:59 03/22/20 20:01 Fredy Wheeler MD March 23, 2020 13:03
[2020-03-23 16:00] VITALS: BP 119/68
--- NOTE | 2020-03-24 10:04 | Discharge Summary ---
Discharge Summary Discharge Summary _ DATE OF ADMISSION: 03/17/2020 DATE OF DISCHARGE: 03/23/2020 DISCHARGED BY: Dr Tripp REASON FOR ADMISSION: 84 years old male with past medical history of hypertension, diabetes mellitus, dementia, presented with right lower extremity pain. Primary physician reported documented fever and cough, which raised question of COVID-19 infection. Upon evaluation vital signs were stable. Pulse oximetry was stable on room air. Laboratory work-up revealed WBC 4.9 ,hemoglobin 10.8, hematocrit 32.1, platelet count 270. Stable electrolytes. BUN 41, creatinine 1.0. Glucose 100. Troponin negative, pro BNP 396 . EKG revealed sinus rhythm , no acute ischemic changes. Venous duplex right lower extremity revealed no evidence of acute DVT. X-ray of the right tibia and fibula reveal no fracture or dislocation. Chest x-ray demonstrated cardiomegaly , equivocal left midlung periphery and basilar infiltrate. Patient was swabbed for CoVID 19, received empiric antibiotic and admitted for further management. CONSULTANTS: pulmonary Dr. Cornejo ID specialist Dr. Fredy Borges psychiatrist [facility] COURSE: Patient admitted to medical surgical floor. Patient was kept in isolation and started on empiric Azithromycin. Pain management was addressed as needed. Pain resolved. Pulse oximetry remained stable on room air. Pulmonary toilet provided. SARS-CoV2 by PCR on 03/17 was positive. Repeated SARS-CoV-2 by PCR on 03/19 and 03/21 not detected. Isolation was discontinued. Home medication continued. Blood pressure was managed with calcium channel honey , ADRIAN inhibitor and beta -honey , remained stable. Levothyroxine continued. Blood sugar was managed with metformin and Starlix. Sliding scale of insulin was on board as needed. Antiplatelet therapy with Plavix and statin continued. Psychiatric medication regimen was optimized as per psychiatrist. Reality orientation provided. Patient clinically stabilized and was ready for transfer back FINAL DIAGNOSES: Confirmed COVID-19 pneumonia Right lower extremity pain -resolved Diabetes mellitus type 2 Dementia with behavioral disturbances Hypothyroidism BPH DISCHARGE MEDICATIONS: See Medication Reconciliation list. DISCHARGE INSTRUCTIONS: Patient was discharged to assisted living. Follow-up with her primary care provider in 1 week. I have been assigned to dictate discharge summary for this account. I was not involved in the patient's management. Bertha Chaparro NP March 24, 2020 10:04
== END 2020-03-23 16:30 | disposition home or self-care (01) | DRG 871 ==
LOC: EDBD 08:27 → EMR 08:59 → 4E 10:26 → EDBEDREQ 16:15 → 4E 03-19 10:29
DX: A41.89 Other specified sepsis (principal); U07.1 COVID-19; J12.89 Other viral pneumonia; F03.91 Unspecified dementia, unspecified severity, with behavioral disturbance; E11.649 Type 2 diabetes mellitus with hypoglycemia without coma; N40.0 Benign prostatic hyperplasia without lower urinary tract symptoms; E03.9 Hypothyroidism, unspecified; Z88.8 Allergy status to other drugs, medicaments and biological substances
CPT/HCPCS: 36415; 71045; 80048; 80053; 83880; 84484; 85025; 87635; 93005; 93971; 96365; 96375; 99285